=== PATIENT | female | born 1945 | race Caucasian/White ===

== ENCOUNTER → 2017-12-12 10:57 | Outpatient (CLI) | payer MEDICARE, MEDICAID, SELFPAY ==
[2017-12-12 12:15] LABS: C-Reactive Protein 1.26 mg/dL (0.0-0.3)
== END ==
PROVIDERS: Visit Provider Orthopaedic Surgery
DX: T84.84XD Pain due to internal orthopedic prosthetic devices, implants and grafts, subsequent encounter (principal)
CPT/HCPCS: 36415; 86140

== ENCOUNTER → 2017-12-17 11:00 | Outpatient (CLI) | payer MEDICARE, MEDICAID, SELFPAY | PROVIDERS: Visit Provider Orthopaedic Surgery | DX: T84.52XD Infection and inflammatory reaction due to internal left hip prosthesis, subsequent encounter (principal); Z96.642 Presence of left artificial hip joint | CPT/HCPCS: 99213 ==

== ENCOUNTER 2018-02-09 09:52 | Outpatient (CLI) | payer MEDICARE, MEDICAID, SELFPAY ==
[2018-02-09 11:47] LABS: C-Reactive Protein 2.12 mg/dL (0.0-0.3)
== END 2018-02-09 10:12 ==
PROVIDERS: Visit Provider Orthopaedic Surgery
DX: T84.52XD Infection and inflammatory reaction due to internal left hip prosthesis, subsequent encounter (principal)
CPT/HCPCS: 36415; 86140

== ENCOUNTER → 2018-02-12 13:05 | Outpatient (BNVA) | payer MEDICARE, MEDICAID, SELFPAY | PROVIDERS: Visit Provider Orthopaedic Surgery | DX: Z47.1 Aftercare following joint replacement surgery (principal); Z96.642 Presence of left artificial hip joint | CPT/HCPCS: 99213 ==

== ENCOUNTER 2018-02-20 00:39 | Outpatient (CLI) | payer MEDICARE, MEDICAID, SELFPAY ==
--- NOTE | 2018-02-20 13:14 | DI.MAMMO_ITS ---
SYMPTOMS/DIAGNOSIS: SCREENING BILATERAL SCREENING MAMMOGRAM: Comparison is made with 2011 through 2017. The breasts are composed of fatty density tissue, breast density category A. No suspicious masses or suspicious microcalcifications are seen. There has been no significant change. IMPRESSION: Category 1A, negative mammogram. Routine screening is recommended. [facility] ASSESSMENT OF FINDINGS: Negative. Category 1. Patient will receive a letter notifying them of these results. BI-RAD category A. The breasts are almost entirely fatty.
== END 2018-02-20 00:59 ==
DX: Z12.31 Encounter for screening mammogram for malignant neoplasm of breast (principal)
CPT/HCPCS: 77063; 77067

== ENCOUNTER 2018-03-30 13:59 | Outpatient (CLI) | payer MEDICARE, MEDICAID, SELFPAY ==
[2018-03-30 14:31] LABS: Abs Immature Grans 0.02 k/cumm (0.0-0.09); Absolute Basophil Count 0.03 k/cumm (0.0-0.2); Absolute Eosinophil Count 0.22 k/cumm (0.0-0.7); Absolute Monocyte Count 0.88 k/cumm (0.11-0.7); Absolute Neutrophil Count 9.45 k/cumm (1.2-6.7); Basophils % 0.2; Eosinophils % 1.7; HGB 13.1 g/dL (12.0-15.5); Immature Grans % 0.2; Lymphocytes % 17.2; Mean Corpuscular Hemoglobin 30.2 pg (27.0-33.0); Mean Corpuscular Volume 94.5 fL (80-95); Mean Platelet Volume 9.7 fL (8.0-11.0); Monocytes % 6.9; Neutrophils % 73.8; Platelet Count 401 x1000/uL (130-400); RBC 4.34 m/cumm (4.00-5.20); RBC Distribution Width 15.1 % (11.7-14.6)
[2018-03-30 15:51] LABS: Hemoglobin A1C 6.5 % (4.5-6.2)
[2018-03-30 15:53] LABS: ALT 18 U/L (12-78); AST 13 U/L (15-37); Albumin 3.3 g/dL (3.4-5.0); Alkaline Phosphatase 107 U/L (46-116); Anion Gap 7.5 mmol/L (3-11); BUN 18 mg/dL (7-18); Bilirubin, Total 0.3 mg/dL (0.2-1.0); C-Reactive Protein 3.37 mg/dL (0.0-0.3); CO2 30.5 mmol/L (21.0-32.0); CREATININE 1.12 mg/dL (0.55-1.02); Calcium 9.4 mg/dL (8.5-10.1); Chloride 99 mmol/L (98-107); Estimated GFR 47.96 (mL/min/1.73m2); Glucose 116 mg/dL (70-100); Potassium 3.9 mmol/L (3.5-5.1); Sodium 137 mmol/L (136-145); TSH (W/Ref FT4) 16.12 uIU/mL (0.358-3.74); Total Protein 7.2 g/dL (6.4-8.2)
[2018-03-30 16:33] LABS: FREE T4 0.92 ng/dL (0.76-1.46)
== END 2018-03-30 14:19 ==
PROVIDERS: Visit Provider Orthopaedic Surgery
DX: F32.9 Major depressive disorder, single episode, unspecified (principal); E11.9 Type 2 diabetes mellitus without complications; I10 Essential (primary) hypertension; K21.9 Gastro-esophageal reflux disease without esophagitis; E03.9 Hypothyroidism, unspecified; E66.9 Obesity, unspecified; Z96.642 Presence of left artificial hip joint; T84.59XA Infection and inflammatory reaction due to other internal joint prosthesis, initial encounter
CPT/HCPCS: 36415; 80053; 83036; 84439; 84443; 85025; 86140

== ENCOUNTER → 2018-03-31 10:58 | Outpatient (BNVA) | payer MEDICARE, MEDICAID, SELFPAY | PROVIDERS: Visit Provider Orthopaedic Surgery | DX: Z47.1 Aftercare following joint replacement surgery (principal); Z96.642 Presence of left artificial hip joint; T84.54XD Infection and inflammatory reaction due to internal left knee prosthesis, subsequent encounter | CPT/HCPCS: 99213 ==

== ENCOUNTER → 2018-07-01 10:34 | Outpatient (BNVA) | payer MEDICARE, MEDICAID, SELFPAY | PROVIDERS: Visit Provider Orthopaedic Surgery | DX: Z47.1 Aftercare following joint replacement surgery (principal); Z96.642 Presence of left artificial hip joint; T84.54XD Infection and inflammatory reaction due to internal left knee prosthesis, subsequent encounter | CPT/HCPCS: 99213 ==

== ENCOUNTER 2018-08-07 08:44 | Outpatient (CLI) | payer MEDICARE, MEDICAID, SELFPAY ==
[2018-08-07 09:47] LABS: HCT 41.7 % (36.0-46.0); HGB 13.5 g/dL (12.0-15.5); Mean Corp. HGB Concentration 32.4 g/dL (32.0-36.0); Mean Corpuscular Hemoglobin 30.2 pg (27.0-33.0); Mean Corpuscular Volume 93.3 fL (80-95); Mean Platelet Volume 9.9 fL (8.0-11.0); Platelet Count 372 x1000/uL (130-400); RBC 4.47 m/cumm (4.00-5.20); RBC Distribution Width 14.7 % (11.7-14.6); White Blood Cell Count 9.17 k/cumm (4.4-10.8)
[2018-08-07 10:06] LABS: Iron 53 ug/dL (50-175); Total Iron Binding Capacity 312 ug/dL (250-450); Transferrin Sat 17 % (15-50)
[2018-08-07 10:08] LABS: ALT 19 U/L (12-78); AST 16 U/L (15-37); Albumin 3.2 g/dL (3.4-5.0); Alkaline Phosphatase 133 U/L (46-116); BUN 18 mg/dL (7-18); Bilirubin, Total 0.3 mg/dL (0.2-1.0); CREATININE 0.92 mg/dL (0.55-1.02); Calcium 9.4 mg/dL (8.5-10.1); Chloride 100 mmol/L (98-107); Glucose 153 mg/dL (70-100); Potassium 4.1 mmol/L (3.5-5.1); Sodium 139 mmol/L (136-145); Total Protein 7.3 g/dL (6.4-8.2)
[2018-08-07 10:15] LABS: Hemoglobin A1C 6.8 % (4.5-6.2)
== END 2018-08-07 09:04 ==
DX: E03.9 Hypothyroidism, unspecified (principal); I10 Essential (primary) hypertension; E11.620 Type 2 diabetes mellitus with diabetic dermatitis; E66.01 Morbid (severe) obesity due to excess calories; K21.9 Gastro-esophageal reflux disease without esophagitis; Z68.43 Body mass index [BMI] 50.0-59.9, adult; Z86.2 Personal history of diseases of the blood and blood-forming organs and certain disorders involving the immune mechanism
CPT/HCPCS: 36415; 80053; 85027; 83036; 83540; 83550

== ENCOUNTER 2021-08-15 00:32 | Outpatient (CLI) | payer MEDICARE, MEDICAID, SELFPAY ==
--- NOTE | 2021-08-15 11:16 | DI.MAMMO_ITS ---
Exam(s) MAMMO SCREENING EXAM: MAMMO SCREENING CLINICAL HISTORY: screening,z12.39. TECHNIQUE: Bilateral full field digital CC and MLO mammographic images were obtained with 3D tomosyn thesis and utilizing computer aided detection (CAD). COMPARISON: Prior mammograms were reviewed, the most recent being February 2018. FINDINGS: There are no new spiculated masses nor malignant appearing microcalcification groups. There is no significant architectural distortion nor skin thickening-retraction. IMPRESSION: No radiographic evidence of malignancy. BI-RADS Category 1 - Negative Breast Density - Category A - Almost entirely fatty Breast density Category C or D implies that the patient has dense breast tissue. Dense breast tissue can make it harder to find cancer on a mammogram. Dense breast tissue is also associated with an incr eased risk of breast cancer. This information about the result of the mammogram report was provided to the patient to raise their awareness. Use this report when you speak with the patient about their risks for breast cancer, which includes their family history. At that time, you may recommend additional screening tests (Ultrasoun d or MRI) as these tests may add significant information. A negative radiographic report should not delay biopsy if a dominant or clinically suspicious mass is present. Up to ten percent of cancers are not identified on mammography. A negative report may reinforce clinical impression. Adenosis and dense breasts may obscure an underlying neoplasm. False positive reports average 6 to 10%. Patient will receive a letter notifying them of these results.
== END 2021-08-15 00:52 ==
DX: Z12.31 Encounter for screening mammogram for malignant neoplasm of breast (principal)
CPT/HCPCS: 77063; 77067

== ENCOUNTER 2022-02-06 03:13 | Outpatient (CLI) | payer MEDICARE, MEDICAID, SELFPAY ==
[2022-02-06 12:45] LABS: ALT 19 U/L (14-59); AST 12 U/L (15-37); Albumin 2.9 g/dL (3.4-5.0); Alkaline Phosphatase 116 U/L (46-116); Anion Gap 7.7 mmol/L (3-11); BUN 18 mg/dL (7-18); Bilirubin, Total 0.3 mg/dL (0.2-1.0); CO2 29.3 mmol/L (21.0-32.0); Calculated LDL 181 mg/dL (<100); Chloride 103 mmol/L (98-107); Cholesterol 250 mg/dL (<200); Estimated GFR 58.75 (mL/min/1.73m2); Glucose 148 mg/dL (74-106); HDL Cholesterol 49 mg/dL (40-60); Potassium 3.5 mmol/L (3.5-5.1); Sodium 140 mmol/L (136-145); TSH (W/Ref FT4) 5.64 uIU/mL (0.36-3.74); Total Protein 7.9 g/dL (6.4-8.2); Triglyceride 103 mg/dL (<150)
[2022-02-06 13:05] LABS: FREE T4 0.71 ng/dL (0.76-1.46)
== END 2022-02-06 03:14 | disposition home or self-care (01) ==
LOC: LOS 03:13
DX: E11.620 Type 2 diabetes mellitus with diabetic dermatitis (principal); Z90.09 Acquired absence of other part of head and neck; E78.5 Hyperlipidemia, unspecified; I10 Essential (primary) hypertension
CPT/HCPCS: 36415; 80053; 80061; 83036; 84439; 84443

== ENCOUNTER 2022-03-20 11:47 | Outpatient (REF) | payer MEDICARE, MEDICAID, SELFPAY ==
[2022-03-20 20:56] LABS: TSH (W/Ref FT4) 0.75 uIU/mL (0.36-3.74)
== END 2022-03-20 11:48 | disposition home or self-care (01) ==
LOC: NCHCN 11:47
PROVIDERS: PCP Nurse Practitioner Family; Visit Provider Nurse Practitioner Family
DX: Z09 Encounter for follow-up examination after completed treatment for conditions other than malignant neoplasm (principal)
CPT/HCPCS: 84443

== ENCOUNTER 2023-02-28 18:41 | Outpatient (REF) | payer MEDICARE, MEDICAID, SELFPAY ==
[2023-02-28 22:56] LABS: Hemoglobin A1C 7.3 % (<5.7)
[2023-02-28 23:09] LABS: ALT 14 U/L (14-59); AST 13 U/L (15-37); Albumin 3.1 g/dL (3.4-5.0); Alkaline Phosphatase 141 U/L (46-116); Anion Gap 14.1 mmol/L (3-11); BUN 20 mg/dL (7-18); Bilirubin, Total 0.2 mg/dL (0.2-1.0); CO2 25.9 mmol/L (21.0-32.0); Calculated LDL 102 mg/dL (<100); Chloride 100 mmol/L (98-107); Cholesterol 165 mg/dL (<200); Estimated GFR 58.39 (mL/min/1.73m2); Glucose 149 mg/dL (74-106); HDL Cholesterol 43 mg/dL (40-60); Potassium 4.6 mmol/L (3.5-5.1); Sodium 140 mmol/L (136-145); TSH (W/Ref FT4) 0.04 uIU/mL (0.36-3.74); Total Protein 7.6 g/dL (6.4-8.2); Triglyceride 102 mg/dL (<150)
== END 2023-02-28 18:42 | disposition home or self-care (01) ==
LOC: LBN 18:41
PROVIDERS: PCP Nurse Practitioner Family; Visit Provider Nurse Practitioner Family
DX: E11.620 Type 2 diabetes mellitus with diabetic dermatitis (principal); E03.9 Hypothyroidism, unspecified
CPT/HCPCS: 80053; 80061; 83036; 84439; 84443

== ENCOUNTER 2023-09-02 14:13 | Outpatient (REF) | payer MEDICARE, MEDICAID, SELFPAY ==
[2023-09-02 20:52] LABS: TSH (W/Ref FT4) 0.05 uIU/mL (0.36-3.74)
== END 2023-09-02 14:14 | disposition home or self-care (01) ==
LOC: LBN 14:13
PROVIDERS: PCP Nurse Practitioner Family; Visit Provider Nurse Practitioner Family
DX: E03.9 Hypothyroidism, unspecified (principal)
CPT/HCPCS: 84439; 84443

== ENCOUNTER 2024-03-02 15:28 | Outpatient (REF) | payer MEDICARE, MEDICAID, SELFPAY ==
[2024-03-02 13:33] LABS: ALT 14 U/L (14-59); AST 16 U/L (15-37); Albumin 3.2 g/dL (3.4-5.0); Alkaline Phosphatase 137 U/L (46-116); Anion Gap 14.2 mmol/L (3-11); BUN 13 mg/dL (7-18); Bilirubin, Total 0.51 mg/dL (0.2-1.0); CO2 25.8 mmol/L (21.0-32.0); CREATININE 1.1 mg/dL (0.55-1.02); Calculated LDL 105 mg/dL (<100); Chloride 98 mmol/L (98-107); Cholesterol 168 mg/dL (<200); Estimated GFR 51.75 (mL/min/1.73m2); Glucose 168 mg/dL (74-106); HDL Cholesterol 42 mg/dL (40-60); Potassium 4.3 mmol/L (3.5-5.1); Sodium 138 mmol/L (136-145); TSH (W/Ref FT4) 0.02 uIU/mL (0.36-3.74); Total Protein 7.9 g/dL (6.4-8.2); Triglyceride 106 mg/dL (<150)
[2024-03-02 23:53] LABS: Hepatitis C Ab w Rflx HCV PCR Negative (Negative)
== END 2024-03-02 15:29 ==
LOC: LBN 15:28
PROVIDERS: PCP Nurse Practitioner Family; Visit Provider Nurse Practitioner Family
DX: E78.00 Pure hypercholesterolemia, unspecified (principal); E03.9 Hypothyroidism, unspecified; Z11.59 Encounter for screening for other viral diseases
CPT/HCPCS: 80053; 80061; 86803; 84439; 84443

== ENCOUNTER 2024-03-18 02:12 | Outpatient (CLI) | payer MEDICARE, MEDICAID, SELFPAY ==
--- NOTE | 2024-03-18 07:15 | DI.DEXA_ITS ---
Exam(s) XR DEXA BONE DENSITY W/WO RUBENS EXAM: XR DEXA BONE DENSITY W/WO RUBENS CLINICAL HISTORY: screening for osteoporosis IN POSTMENOPAUSAL STATUS,Z78.0 TECHNIQUE: COMPARISON: Comparison examination is 02/24/2008. FINDINGS: Lateral Spine Image: Unremarkable. No compression deformities identified. Left forearm: Total T-Score: 0.0 Total Z-Score: 2.7 T- and Z-scores: Within normal limits. Lumbar Spine: Total T-Score: 2.0. This compares to 3.4 on the prior examination. Total Z-Score: 4.6 T- and Z-scores: Within normal limits. IMPRESSION: No evidence of osteoporosis.
== END 2024-03-18 02:32 ==
LOC: DI 02:12
PROVIDERS: PCP Nurse Practitioner Family; Visit Provider Nurse Practitioner Family
DX: Z78.0 Asymptomatic menopausal state (principal); Z13.820 Encounter for screening for osteoporosis
CPT/HCPCS: 77080

== ENCOUNTER 2024-09-07 22:17 | Outpatient (REF) | payer MEDICARE, MEDICAID, SELFPAY ==
[2024-09-07 23:25] LABS: TSH (W/Ref FT4) 0.22 uIU/mL (0.36-3.74)
[2024-09-07 23:45] LABS: FREE T4 1.36 ng/dL (0.76-1.46)
== END 2024-09-07 22:18 | disposition home or self-care (01) ==
LOC: LBN 22:17
PROVIDERS: PCP Nurse Practitioner Family; Visit Provider Nurse Practitioner Family
DX: Z90.09 Acquired absence of other part of head and neck (principal); E03.9 Hypothyroidism, unspecified
CPT/HCPCS: 84439; 84443

== ENCOUNTER 2024-10-11 08:35 | Inpatient (IN) | payer MEDICARE, MEDICAID, SELFPAY ==
[2024-10-11] VITALS (40 sets, daily range): BP systolic 101–113; BP diastolic 40–69; PULSE 68–89; RESP 15–28; TEMP 36.4–37; O2SAT 77–97
--- NOTE | 2024-10-11 08:15 | RT.EKG_ITS ---
APPROVED REPORT Exam: Resting ECG Reason for Exam: SOB Patient Location: E HR:88 bpm ECG Measurements Heart Rate 88 AXIS MD [id number] P [id number] QRSd 124 QRS -72 QT 404 T 126 QTc 488 Conclusion Atrial fibrillation, rate 88 IVCD T wave inversion I, aVL No STEMI No recent priors, A-fib new from [facility] EKG 2016
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
[2024-10-11] MEDS: methylPREDNISolone SUCC 125 MG VIAL IVP (08:55)
[2024-10-11 08:56] LABS: Abs Immature Grans 0.09 10^3/uL (0.0-0.06); Absolute Lymphocyte Count 1.37 10^3/uL (1.2-3.4); Absolute Monocyte Count 0.67 10^3/uL (0.1-0.8); Absolute Neutrophil Count 13.37 10^3/uL (1.2-6.7); BE (Venous) 5 mmol/L (-2-3); Basophils % 0.4 %; Eosinophils % 0.8 %; HCO3 (Venous) 30 mmol/L (23-28); HCT 35.4 % (36.0-46.0); HGB 11.6 g/dL (11.2-15.7); Immature Grans % 0.6 %; Lymphocytes % 8.7 %; MCHC 32.8 % (32.0-36.0); MCV 92 fL (80-95); MPV 9.1 fL (8.0-11.0); Monocytes % 4.3 %; Neutrophils % 85.2 %; O2 Sat (Venous) 72 %; Platelet Count 474 10^3/uL (130-400); RBC 3.87 10^6/uL (3.93-5.22); RDW 14.7 % (11.7-14.6); RDW-SD 49.5 fL; TCO2 (Venous) 28 mmol/L (24-29); WBC 15.69 10^3/uL (4.4-10.8); pCO2 (Venous) 49 mmHg (41-51); pH (Venous) 7.39 (7.31-7.41); pO2 (Venous) 40 mmHg
[2024-10-11] MEDS: Albuterol/Ipratropium 3 ML UPD VIAL UPD (08:56)
[2024-10-11 08:57] LABS: Absolute Basophil Count 0.06 10^3/uL (0.0-0.2); Absolute Eosinophil Count 0.13 10^3/uL (0.0-0.7)
[2024-10-11 09:25] LABS: D-Dimer 1982 ng/mlFEU (<500)
--- NOTE | 2024-10-11 09:25 | DI.RAD_ITS ---
Exam(s) XR PORTABLE CHEST AP EXAM: XR PORTABLE CHEST AP CLINICAL HISTORY: Shortness of breath/hypoxia TECHNIQUE: 2D digital imaging was performed of the chest. Two images were obtained. AP views were obtained. COMPARISON: CR CHEST 2 VIEWS PA,LAT from 09/02/2017 FINDINGS: There is poor inspiration with crowding of the pulmonary vasculature. MEDIASTINUM: Normal. HEART: The heart is at the upper limits of normal in size. PULMONARY VASCULATURE: There is pulmonary venous congestion. LUNGS: No focal consolidating infiltrates are seen. There are increased interstitial markings in the lungs particularly in the perihilar region, right greater than left. PLEURAL SPACE: No pleural effusion or pneumothorax. BONE:Within normal limits for the patient's age. OTHER FINDINGS:Normal. IMPRESSION: Mild cardiomegaly. Pulmonary venous congestion and interstitial edema. DATA REPOSITORY: RADIATION DOSE DELIVERED:
[2024-10-11 09:29] LABS: ALT 11 U/L (14-59); AST 18 U/L (15-37); Albumin 2.8 g/dL (3.4-5.0); Alkaline Phosphatase 125 U/L (46-116); BUN 17 mg/dL (7-18); Bilirubin, Total 0.8 mg/dL (0.2-1.0); CREATININE 0.8 mg/dL (0.55-1.02); Calcium 9.1 mg/dL (8.5-10.1); Chloride 94 mmol/L (98-107); Estimated GFR 75.37 (mL/min/1.73m2); Glucose 188 mg/dL (74-106); Magnesium 1.5 mg/dL (1.8-2.4); NT-proBNP 3546 pg/mL (<300); Potassium 3.9 mmol/L (3.5-5.1); Sodium 134 mmol/L (136-145); Troponin I 16 ng/L (<or=51)
--- NOTE | 2024-10-11 09:43 | DI.CT_ITS ---
Exam(s) CT CHEST PE CTA EXAM: CT CHEST PE CTA CLINICAL HISTORY: new heart failure, elevated d-dimer. TECHNIQUE: Imaging Protocol: Axial CT angiography was performed with multi-slice acquisition and mu lti-planar and/or 3D reconstructions. Lung Computer Aided Detection (CAD) was utilized. CONTRAST MATERIAL: Intravenous: Omnipaque 350 contrast volume:100 mL COMPARISON: CR XR PORTABLE CHEST AP from 10/11/2024 FINDINGS: Tracheobronchial tree: Patent where visualized. No bronchiectasis. Pulmonary parenchyma: There are diffuse bilateral ground-glass opacities present. There are bilatera l pleural effusions, right greater than left with subjacent infiltrates which may represent atelectas is. No architectural distortion. Pulmonary Arteries: Due to the low lung volumes and motion artifact, subsegmental pulmonary artery ev aluation is limited. Within the limits of the examination, no pulmonary embolism is present. Mediastinum and Lindsay: No dominant adenopathy or fluid collection. The esophagus is unremarkable. Pleura: No pneumothorax. Heart: Cardiomegaly. Mild coronary artery calcification is present. No pericardial effusion. Aorta: Thoracic aorta non-dilated. Atherosclerotic calcification is present. There is poor opacifica tion of the aorta due to timing of the bolus. Upper abdomen: Cholelithiasis. Right renal cyst. No follow-up is recommended. Soft tissues: Unremarkable. Bones: Within normal limits for the patient's age. IMPRESSION: 1. Within the limits of the examination, there is no evidence of pulmonary embolism or aneurysm. 2. Findings suggestive of congestive heart failure with cardiomegaly and pleural effusions. 3. Pulmonary opacities likely reflecting pulmonary edema. Pneumonia cannot be excluded. Please demar elate clinically. 4. Cholelithiasis. RADIATION DOSE DELIVERED: 338.86mGy.cm Total DLP DATA REPOSITORY: All CT scans at this facility are submitted to the National Radiology Data Registry (NRDR) Dose Index Registry (DIR) with the [employer] (ACR). RADIATION OPTIMIZATION: All CT scans at this facility use at least one of these dose optimization te chniques: automated exposure control; mA and/or kV adjustment per patient size (includes targeted exa ms where dose is matched to clinical indication); or iterative reconstruction.
[2024-10-11] MEDS: Furosemide 40 MG/4 ML VIAL IVP (09:46)
[2024-10-11] MEDS: MAGNESIUM SULFATE 2 GM/50 ML BAG IV_INF (09:59)
[2024-10-11 10:10] LABS: Bilirubin Moderate (Negative); Blood Trace-intact (Negative); Clarity Sl Cloudy (Clear); Glucose Negative (Negative); Ketones 15 mg/dL (Negative); Leukocyte Esterase Trace (Negative); Nitrite Negative (Negative)
[2024-10-11] MEDS: Normal Saline - Diluent 50 ML VIAL IJ (10:19)
[2024-10-11 10:20] LABS: Troponin I 17 ng/L (<or=51)
[2024-10-11] MEDS: Omnipaque 350 MG/ML 100 ML BTL IJ (10:20)
[2024-10-11 10:25] LABS: Epithelial Cells Rare HPF (Negative); WBC 0-2 HPF (0-5)
[2024-10-11 10:26] LABS: Bacteria Few HPF (Negative); C & S Indicated? No; Casts 5-10 Hyaline LPF (Negative); Crystals Negative HPF (Negative); Mucus Trace (Negative); Other Cells Rare Renal (Negative)
--- NOTE | 2024-10-11 14:43 | W.PC.ACHO ---
Registration Status: Primary Language: Preferred Language: ED Information & Data Chief Complaint RespSymp 10/11/24 11:26 Chief Complaint RespSymp 10/11/24 08:53 Triage Note Patient complaining of SOB. 10/11/24 08:36 EMS found patient with ow O2 level. EMS gave 2 neb treatments. Medical / Surgical History (Last Reviewed 09/02/23 @ 12:16 by Mikel Polanco NP) Wound healing, delayed (04/14/17) HTN (hypertension) Depressive disorder History of total right hip replacement (Last Reviewed 09/02/23 @ 12:16 by Mikel Polanco NP) History of bilateral ligation of fallopian tubes Ligation of fallopian tube Total replacement of hip (12/18/15) Lobectomy Hysterectomy Colonoscopy - MAC (12/18/16) Cervical Conization/LEEP Most Recent Vital Signs Temperature 37.0 C 10/11/24 08:44 Temperature Source Oral 10/11/24 08:44 Pulse 74 10/11/24 12:01 Pulse 73 10/11/24 12:01 Respiratory Rate 19 10/11/24 12:01 Respiratory Effort Labored 10/11/24 10:17 Respiratory Depth Normal 10/11/24 10:17 Blood Pressure 109/64 10/11/24 12:01 Blood Pressure Mean 73 10/11/24 12:01 Pulse Oximetry 93 10/11/24 12:01 Oxygen Delivery Method OxyMask 10/11/24 08:56 Oxygen Flow Rate 6 10/11/24 08:44 Allergies zolpidem tartrate (From Ambien) Adverse Reaction (Severe, Verified 10/11/24 08:44) Psychosis Precautions Isolation Standard precaution 10/11/24 11:26 Active Medications Generic Name Dose Route Start Last Admin Trade Name Freq PRN Reason Stop Dose Admin Iohexol 100 ml 10/11/24 10:30 10/11/24 10:20 Omnipaque 350 Mg/Ml 100 Ml Btl IJ 11/10/24 23:59 100 ml DIRECTED PJ Administration Sodium Chloride 50 ml 10/11/24 10:30 10/11/24 10:19 Normal Saline - Diluent 50 Ml Vial IJ 50 ml .FOR DI USE PJ Administration IV IV Catheter Type [Right Saline Lock Antecubital] IV Catheter Gauge [Right 20 Antecubital] Diet Orders Category Date Time Status Heart Healthy Eating [DIET] Nutrition 10/11/24 Dinner Active Diagnostics 10/11/24 10/11/24 10/11/24 Range/Units 11:41 10:02 09:32 WBC (4.4-10.8) 10^3/uL RBC (3.93-5.22) 10^6/uL Hgb (11.2-15.7) g/dL Hct (36.0-46.0) % MCV (80-95) fL MCH (27.0-33.0) pg MCHC (32.0-36.0) % RDW (11.7-14.6) % Plt Count (130-400) 10^3/uL MPV (8.0-11.0) fL Immature Gran % % Neutrophils % % Lymphocytes % % Monocytes % % Eosinophils % % Basophils % % Nucleated RBC % (0.0-0.3) % Absolute Neutrophils (1.2-6.7) 10^3/uL Absolute Lymphocytes (1.2-3.4) 10^3/uL Absolute Monocytes (0.1-0.8) 10^3/uL Absolute Eosinophils (0.0-0.7) 10^3/uL Absolute Basophils (0.0-0.2) 10^3/uL D-Dimer (<500) ng/mlFEU VBG pH (7.31-7.41) VBG pCO2 (41-51) mmHg VBG pO2 mmHg VBG HCO3 (23-28) mmol/L VBG Total CO2 (24-29) mmol/L VBG O2 Saturation % VBG Base Excess (-2-3) mmol/L Sodium (136-145) mmol/L Potassium (3.5-5.1) mmol/L Chloride (98-107) mmol/L Carbon Dioxide (21.0-32.0) mmol/L Anion Gap (3-11) mmol/L BUN (7-18) mg/dL Creatinine (0.55-1.02) mg/dL Est GFR (CKD-EPI 2020) (mL/min/1.73m2) Glucose (74-106) mg/dL Calcium (8.5-10.1) mg/dL Magnesium (1.8-2.4) mg/dL Total Bilirubin (0.2-1.0) mg/dL AST (15-37) U/L ALT (14-59) U/L Alkaline Phosphatase (46-116) U/L Troponin I Cancelled 17 (<or=51) ng/L NT-Pro-B Natriuret Pep (<300) pg/mL Total Protein (6.4-8.2) g/dL Albumin (3.4-5.0) g/dL Urine Color Yellow (Yellow) Urine Clarity Sl Cloudy (Clear) Urine pH 6.0 (5-8) Ur Specific [place] 1.020 (1.005-1.025) Urine Protein 100 H (Neg-Trace) mg/dL Urine Ketones 15 H (Negative) mg/dL Urine Blood Trace-intact H (Negative) Urine Nitrite Negative (Negative) Urine Bilirubin Moderate H (Negative) Urine Urobilinogen 4.0 H (Up to 0.2) mg/dL Ur Leukocyte Esterase Trace H (Negative) Urine RBC 3-5 H (0-2) HPF Urine WBC 0-2 (0-5) HPF Ur Epithelial Cells Rare (Negative) HPF Urine Crystals Negative (Negative) HPF Urine Bacteria Few (Negative) HPF Urine Casts 5-10 Hyaline (Negative) LPF Urine Mucus Trace (Negative) Urine Other Rare Renal (Negative) Ur Culture Indicated? No Urine Glucose Negative (Negative) mg/dL 10/11/24 Range/Units 08:46 WBC 15.69 H (4.4-10.8) 10^3/uL RBC 3.87 L (3.93-5.22) 10^6/uL Hgb 11.6 (11.2-15.7) g/dL Hct 35.4 L (36.0-46.0) % MCV 92 (80-95) fL MCH 30.0 (27.0-33.0) pg MCHC 32.8 (32.0-36.0) % RDW 14.7 H (11.7-14.6) % Plt Count 474 H (130-400) 10^3/uL MPV 9.1 (8.0-11.0) fL Immature Gran % 0.6 % Neutrophils % 85.2 % Lymphocytes % 8.7 % Monocytes % 4.3 % Eosinophils % 0.8 % Basophils % 0.4 % Nucleated RBC % 0.0 (0.0-0.3) % Absolute Neutrophils 13.37 H (1.2-6.7) 10^3/uL Absolute Lymphocytes 1.37 (1.2-3.4) 10^3/uL Absolute Monocytes 0.67 (0.1-0.8) 10^3/uL Absolute Eosinophils 0.13 (0.0-0.7) 10^3/uL Absolute Basophils 0.06 (0.0-0.2) 10^3/uL D-Dimer 1982 H (<500) ng/mlFEU VBG pH 7.39 (7.31-7.41) VBG pCO2 49 (41-51) mmHg VBG pO2 40 mmHg VBG HCO3 30 H (23-28) mmol/L VBG Total CO2 28 (24-29) mmol/L VBG O2 Saturation 72 % VBG Base Excess 5 H (-2-3) mmol/L Sodium 134 L (136-145) mmol/L Potassium 3.9 (3.5-5.1) mmol/L Chloride 94 L (98-107) mmol/L Carbon Dioxide 30.0 (21.0-32.0) mmol/L Anion Gap 10.0 (3-11) mmol/L BUN 17 (7-18) mg/dL Creatinine 0.8 (0.55-1.02) mg/dL Est GFR (CKD-EPI 2020) 75.37 (mL/min/1.73m2) Glucose 188 H (74-106) mg/dL Calcium 9.1 (8.5-10.1) mg/dL Magnesium 1.5 L (1.8-2.4) mg/dL Total Bilirubin 0.8 (0.2-1.0) mg/dL AST 18 (15-37) U/L ALT 11 L (14-59) U/L Alkaline Phosphatase 125 H (46-116) U/L Troponin I 16 (<or=51) ng/L NT-Pro-B Natriuret Pep 3546 H (<300) pg/mL Total Protein 8.0 (6.4-8.2) g/dL Albumin 2.8 L (3.4-5.0) g/dL Urine Color (Yellow) Urine Clarity (Clear) Urine pH (5-8) Ur Specific [place] (1.005-1.025) Urine Protein (Neg-Trace) mg/dL Urine Ketones (Negative) mg/dL Urine Blood (Negative) Urine Nitrite (Negative) Urine Bilirubin (Negative) Urine Urobilinogen (Up to 0.2) mg/dL Ur Leukocyte Esterase (Negative) Urine RBC (0-2) HPF Urine WBC (0-5) HPF Ur Epithelial Cells (Negative) HPF Urine Crystals (Negative) HPF Urine Bacteria (Negative) HPF Urine Casts (Negative) LPF Urine Mucus (Negative) Urine Other (Negative) Ur Culture Indicated? Urine Glucose (Negative) mg/dL Intake and Output - 24 Hour Total 10/11/24 08:22 thru 10/11/24 12:50 Intake Total 50 Output Total 600 Balance -550 Weight 129.274 kg Intake: IV 50 Output: Urine 600 Other: Urine Color Yellow Urine Appearance Clear Comment Inserted with Meg Arzate RN Urinary Catheter Urinary Catheter Date of 10/11/24 Insertion [Urethral (Cha)] Time of insertion [Urethral ( 10:00 Cha)] Falls Risk Assessment History of Falls No History 10/11/24 11:31 Contributing Factors No Factors 10/11/24 11:31 Ambulatory Aids Uses ambulatory device 10/11/24 11:31 Tubes/Lines None 10/11/24 11:31 Gait Evaluation W/no contributing factors 10/11/24 11:31 Cognition No cognitive impairment 10/11/24 11:31 Fall Total Score 10/11/24 11:31 Level of Risk Moderate Risk 10/11/24 11:31 v v v v v v v v v Sending and/or Receiving Nurses: Please use comment section below to note any information pertinent to the patient hand-off not included above. Information / Comments: Pt came to ED for worsening work of breath. Pt was sating at 60% when arrived to ed. Medications were provided and pts WOB decreased. Pt VS stable in ED. On 3 L sating at 94%. Pt arrived on floor and was settled into bed. Pt has a # 20 to R ac flushing well. Allergy reported to zolpidem. a/o x 4 and able to make needs known. Bed alarm set for safety. Report received from:
[2024-10-11] MEDS: Enoxaparin 40 MG/0.4 ML SYR SC (15:39)
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
[2024-10-11 17:44] LABS: Lab Add On Test DONE
[2024-10-11 18:10] LABS: TSH 0.57 uIU/mL (0.36-3.74)
[2024-10-11 18:36] LABS: Hemoglobin A1C 6.2 % (<5.7)
[2024-10-11] MEDS: Furosemide 40 MG/4 ML VIAL 60 MG IVP (20:06)
[2024-10-11] MEDS: Melatonin 3 MG TAB 6 MG PO (20:08)
[2024-10-11] MEDS: Simvastatin 20 MG TAB PO (20:08)
[2024-10-11] MEDS: Apixaban 5 MG TAB PO (20:08)
[2024-10-11] MEDS: Normal Saline Flush 10 ML SYR IVP (20:09)
[2024-10-11] MEDS: Insulin Aspart 300 UNITS/3 ML PEN SC (22:21)
[2024-10-12] VITALS (20 sets, daily range): BP systolic 82–115; BP diastolic 41–99; PULSE 65–83; RESP 16–20; TEMP 36.1–36.8; O2SAT 77–97
--- NOTE | 2024-10-12 | DI.US_ITS ---
APPROVED REPORT EXAM: Comprehensive 2D, Doppler, and color-flow Echocardiogram Patient Location: In-Patient Room/Bed: 211 Deckhand: Leah Marie RDCS (AE) Indications: CHF new DX, A Fib Other Information Study Quality: Fair. Technically limited study due to body habitus, exam done supine. Conclusion Mild concentric left ventricular hypertrophy. Ejection fraction is 55%. Wall motion is normal Normal right ventricular size and function Both atria are moderately enlarged There are no structural valvular abnormalities Trace aortic regurgitation Moderate mitral regurgitation Mild tricuspid regurgitation. Estimated right ventricular systolic pressure is 55 mmHg Ascending aorta measures 3.87 cm Wall motion Left Ventricle The left ventricle is normal size. The left ventricular systolic function is normal. The left ventric ular ejection fraction is within the normal range. Mild concentric left ventricular hypertrophy. Ther e is normal LV segmental wall motion. There is no ventricular septal defect visualized. LVEF is 55%. Right Ventricle Right ventricle is grossly normal in size. Right ventricular systolic function is grossly normal. Atria Left atrium is moderately dilated. Right atrium is moderately dilated. The interatrial septum is inta ct with no evidence for an atrial septal defect. Aortic Valve The aortic valve is normal in structure. Aortic valve is trileaflet. There is no aortic valvular sten osis. Trace aortic regurgitation. Mitral Valve The mitral valve is normal in structure. No evidence of mitral valve stenosis. Moderate mitral regur gitation. Tricuspid Valve The tricuspid valve is normal in structure. There is no tricuspid valve stenosis. Mild tricuspid reg urgitation. The RVSP is 55.4_ mmHg. Pulmonic Valve The pulmonary valve is normal in structure. There is no pulmonic valvular stenosis. Trace pulmonic re gurgitation. Great Vessels The aortic root is normal in size. The ascending aorta is mildly dilated. Aortic arch is normal in ca liber. IVC is normal in size and collapses >50% with inspiration. Pericardium There is no pericardial effusion. 2D Dimensions IVSD d PLAX 1.20 cm F: 0.6-1.0 Ao Root d 3.30 cm F: 2.7 - 3.3 LVPW d PLAX 1.21 cm F: 0.6 - 1.0 Ao Asc Diam d 3.87 cm F: 2.3 - 3.1 LVID d PLAX 4.85 cm F: 3.8 - 5.2 LVDs 3.36 cm F: 2.2 - 3.5 LV EF Teichholz 58.0 % FS 30.65 % LV EDV (Teich) 110.1 mL LV ESV (Teich) 46.2 mL M-Mode TAPSE 1.69 cm (M/F) >1.7 Auto EF LV EDV A4C 119.2 mL LV EDV A2C 137.4 mL LV EDV BP 128.1 mL LV ESV A4C 54.9 mL LV ESV A2C 63.6 mL LV ESV BP 58.8 mL LVEF(%) A4C 53.9 % LVEF(%) A2C 53.7 % LVEF(%) BP 54.1 % LV SV A4C 64.3 ml LV SV A2C 73.8 ml LV SV BP 69.3 ml LV CO A4C 4.5 L/min LV CO A2C 4.0 L/min LV CO BP 4.2 L/min HR A4C 69.24 BPM HR A2C 53.56 BPM LV EDV Index (BP) LA Volume LA Length A4C 6.8 cm LA Length A2C 6.9 cm LA Area A4C s 28.52 cm2 LA Area A2C s 28.44 cm2 LA Vol A4C A-L 101.89 mL LA Vol A2C A-L 99.53 mL LA Vol Biplane A-L 101.6 mL LA Vol/BSA A4C A-L LA Vol/BSA A2C A-L LA Vol/BSA BP A-L 45.8 mL/m2 LA Vol A4C MOD 96.0 mL LA Vol A2C MOD 91.2 mL LA Vol BP MOD 94.1 mL RA Volume RA Area A4C 18.6 cm2 RA ESV A4C (A-L) 51.0mL RA Vol/BSA A4C A-L RA Length A4C 5.8 cm RA ESV A4C (MOD) 52.8mL LV Diastology MV E' medial 0.067 (>0.07 m/s) MV E Vmax 1.35 (0.4-1.3 m/s) MV E/E' MED 20.23 (<14) MV A Vmax 0.45 (0.4-1.3 m/s) MV E' lateral 0.123 (>0.1 m/s) E/A Ratio 3.0 MV E/E' LAT 10.99 (<14) MV E' Average 0.095 m/s MV E/E'(average) 14.24 Aortic Valve AoV Vmax 1.68 m/s LVOT Vmax 1.27 m/s AoV Peak Grad 11.4 mmHg LVOT Peak Grad 6.5 mmHg AoV Area (Vmax) 2.43 cm2 LVOT VTI 0.290 m AoV VTI 0.357 m LVOT Mean Grad 3.7 mmHg AoV Mean Marc. 1.14 m/s LVOT SV 93.25 mL AoV Mean Grad 5.9 mmHg LVOT Diam s 2.00 cm AoV Area (VTI) 2.61 cm2 AV Regurg Peak Gr. 11.35 mmHg Velocity Ratio 0.76 Mitral Valve MV DT 164 (160-240 msec) MV Vmax TIPS 1.31 m/s MV Mean Grad 2.0 (<2mmHg) MV VTI 0.328 m Pulmonary Valve PV Vmax 0.97 (0.5-1.5 m/s) RVOT Vmax 0.58 m/s PV Peak Grad 3.8 mmHg RVOT Peak Gr. 1.4 mmHg PV Mean Marc 0.71 m/s RVOT VTI 0.171 m PV Mean Grad 2.2 mmHg RVOT Mean Gr. 0.7 mmHg Tricuspid Valve RA Pressure 3.00 mmHg TR Vmax 3.62 m/s TV S' 0.12 m/s TR Peak Grad 52.3 mmHg RVSP (TR) 55.4 mmHg
--- NOTE | 2024-10-12 | DI.RAD_ITS ---
Exam(s) XR PORTABLE CHEST AP EXAM: XR PORTABLE CHEST AP CLINICAL HISTORY: Increased SOB. TECHNIQUE: 2D digital imaging was performed. COMPARISON: CR XR PORTABLE CHEST AP from 10/11/2024 FINDINGS: Single AP portable view. Cardiomegaly again noted. Mediastinum unchanged. Persistent increased markings in the lung caldwell probably pulmonary edema. No large pleural effusion s. No pneumothorax. No fractures. IMPRESSION: As above. No radiographic improvement when compared to yesterday. DATA REPOSITORY: RADIATION DOSE DELIVERED:
[2024-10-12] MEDS: Levothyroxine 175 MCG TAB PO (05:50)
[2024-10-12 06:37] LABS: Abs Immature Grans 0.08 10^3/uL (0.0-0.06); Absolute Lymphocyte Count 1.21 10^3/uL (1.2-3.4); Absolute Monocyte Count 0.77 10^3/uL (0.1-0.8); Absolute Neutrophil Count 10.21 10^3/uL (1.2-6.7); Basophils % 0.2 %; HCT 31.9 % (36.0-46.0); HGB 10.6 g/dL (11.2-15.7); Immature Grans % 0.7 %; Lymphocytes % 9.8 %; MCH 30.3 pg (27.0-33.0); MCHC 33.2 % (32.0-36.0); MCV 91 fL (80-95); MPV 9.3 fL (8.0-11.0); Monocytes % 6.3 %; Platelet Count 479 10^3/uL (130-400); RDW-SD 49.5 fL
[2024-10-12 06:38] LABS: Absolute Basophil Count 0.02 10^3/uL (0.0-0.2)
[2024-10-12 07:04] LABS: Anion Gap 9.2 mmol/L (3-11); BUN 26 mg/dL (7-18); CO2 30.8 mmol/L (21.0-32.0); Calcium 8.8 mg/dL (8.5-10.1); Chloride 94 mmol/L (98-107); Estimated GFR 57.66 (mL/min/1.73m2); Glucose 133 mg/dL (74-106); Magnesium 1.9 mg/dL (1.8-2.4); Potassium 3.7 mmol/L (3.5-5.1); Sodium 134 mmol/L (136-145)
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
[2024-10-12] MEDS: Furosemide 40 MG/4 ML VIAL IVP ×2 (07:58→17:47)
[2024-10-12] MEDS: Normal Saline Flush 10 ML SYR IVP ×4 (07:59→19:40)
[2024-10-12] MEDS: Aspirin 81 MG CHEW PO (08:01)
[2024-10-12] MEDS: Apixaban 5 MG TAB PO ×2 (08:01→19:39)
[2024-10-12] MEDS: hydroCHLOROthiazide 25 MG TAB PO (08:02)
[2024-10-12] MEDS: Multivitamin TAB 1 TAB PO (08:07)
[2024-10-12] MEDS: Insulin Aspart 300 UNITS/3 ML PEN SC ×3 (08:57→21:25)
--- NOTE | 2024-10-12 09:44 | W.INDIABCONS ---
Date of service: 10/12/24 Time of Service: 09:58 Diabetes Inpatient Consult Reason for Visit: received consult request regarding diabetes education and mgt. DESCRIPTION/ASSESSMENT: Gisel admitted via EMS after c/o of SOB and found with low O2 level. Being treated for acute hypoxic resp failure, CHF, AFib, low magnesium. Hx also of DMII and hypothyroidism, and HTN. A1C 6.2% yesterday with recent hx of 7.3% of less over the last 6+ years. 1,000mg Metformin is only diabetes med at home. Sodium 134 today (K+WNL) . GFR 57 today. Fasting glucose 133 this morning and 145 pre breakfast. - ordered for heart healthy consistent CHO diet with normal consistencies. Yesterday total protein lab wnl with low albumin at 2.8 - could be more indicative of inflammation - can get CRP and prealbumin to better assess protein status, howver pt with fair to good po intake last night. Discussed menu options with patient. She has no questions re: diabetes mgt at this time. She did take my card to contact re: outpatient nutrition services should she have questions or want to work on weight reduction to help improve sx. INTERVENTION: no aggressive nutrition intervention planned at this time. Will continue to monitor intake, glucose and nutrition-related labs, weight, and remain available for education/answer questions. Time Spent in Nutritional Counseling and Treatment: 5
--- NOTE | 2024-10-12 12:19 | NUR.NOTE ---
Nursing Note: Nurse updated by FUNNEL SETTER that patients BP was out of normal range and low. FUNNEL SETTER had taken manual blood pressure and SBP was in the 80's. Nurse at bedside to repeat vitals, O2 saturation in the 70's, nurse requested charge ask provider to come to bedside. Oxygen applied, saturation improved, manual BP remained in the 80's, nurse requested RT to besided, updated provider of change in patient status, requested provider come to bedside. Patient currently on 1 liter oxygen via NC 92%, patient SBP remains in the 80's see flow sheet, see new orders. Patients primary complaint is difficulty talking and feeling like theres phlegm making it hard to talk.
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
--- NOTE | 2024-10-12 12:45 | RT.EKG_ITS ---
APPROVED REPORT Exam: Resting ECG Reason for Exam: hypotension Patient Location: I HR:69 bpm ECG Measurements Heart Rate 69 AXIS AL [id number] P [id number] QRSd 124 QRS -58 QT 409 T 136 QTc 439 Conclusion Atrial flutter with predominant 4:1 AV block...A-rate 293, multiple Ps Left bundle branch block...QRSd>120, broad/notched R
--- NOTE | 2024-10-12 14:35 | PGE_ITS ---
Date of Service Date of service: 10/12/24 Time of Service: 14:35 Assessment and Plan Assessment and plan (1) Acute hypoxic respiratory failure: Status: Acute Assessment and plan: Had O2 requirement today and continued to have difficulty breathing. Albumin and lasix given * Continue supplemental oxygen to maintain SpO2 > 90%. * Monitor oxygen saturation regularly. (2) CHF (congestive heart failure): Status: Chronic Assessment and plan: The patient has no prior history of CHF, but her chest x-ray shows signs of pulmonary edema, and bedside echo demonstrates a reduced ejection fraction and plethoric IVC, consistent with heart failure. Her BNP is markedly elevated at 3500. Seen by Dr Nair - She should be considered for a sleep study. She has been given diuretics with some degree of improvement. Her echocardiogram shows preserved left ventricular systolic function. EF is 55%. There is no significant valvular disease. (3) Atrial fibrillation: Status: Chronic Assessment and plan: The patient is found to have new-onset atrial fibrillation on EKG with a rate of 88. She is not anticoagulated, and the symptoms have been ongoing for 8 days. She is at an increased risk for embolism and stroke. * Rate control: Continue with metoprolol (200mg daily) for heart rate control. * Anticoagulation: Given the recent onset and symptoms lasting for 8 days, start apixaban 5 mg BID per cardiology Patient has been appropriately started on anticoagulation with Eliquis. Her heart rate is controlled) * Electrolyte repletion: Ensure appropriate magnesium levels and continue repletion if needed. * Avoid rhythm control: Rhythm control (i.e., cardioversion) is contraindicated due to the risk of thromboembolism. * Monitor for signs of stroke or systemic embolism. (4) Hypomagnesemia: Status: Acute Assessment and plan: The patient's magnesium level is mildly low at 1.5, which could contribute to her atrial fibrillation and cardiac instability. * Repletion: Continue IV magnesium repletion as indicated. * Monitor magnesium levels closely and adjust as necessary. (5) Diabetes mellitus: Status: Chronic Assessment and plan: The patient has a known history of diabetes mellitus, with an ongoing need for blood sugar monitoring. * Monitor blood glucose levels: FS AC HS and SSI * Continue home medications: Hold Metformin * Monitor for signs of diabetic complications during hospitalization. (6) Hypothyroidism: Status: Chronic Assessment and plan: Continue home meds TSH pending (7) Hypotension: Status: Acute Assessment and plan: Patient did exhibit some hypotension earlier today, asymptomatic, no tachycardia. Patient was given hydrocortisone 100 mg. Hypotension resolved. Subjective Subjective Patient reports: no new complaints, tolerating liquids well, tolerating a regular diet, voiding w/o difficulty (nguyen catheter), bowel movement and shortness of breath; denies diarrhea, nausea or vomiting Interval history since last seen: Gisel continues to feel short of breath. Exam Narrative Exam Narrative: * General: Alert, in no respiratory distress. * HEENT: No jaundice. * Lungs: distant, clear bilaterally, no crackles. * CV: Irregular rhythm (atrial fibrillation) without ischemia, good perfusion. * Neurological: No deficits, able to speak in full sentences. * Skin: No cyanosis or rashes. Objective Last Vital Signs Temp 36.1 C L 10/12/24 12:54 Pulse 68 10/12/24 12:54 Resp 20 10/12/24 12:54 BP 102/50 L 10/12/24 12:54 Pulse Ox 92 10/12/24 13:20 Laboratory Results - last 24 hr 10/11/24 10/11/24 10/11/24 08:46 09:32 09:35 WBC RBC Hgb Hct MCV MCH MCHC RDW Plt Count MPV Immature Gran % Neutrophils % Lymphocytes % Monocytes % Eosinophils % Basophils % Nucleated RBC % Absolute Neutrophils Absolute Lymphocytes Absolute Monocytes Absolute Eosinophils Absolute Basophils Sodium Potassium Chloride Carbon Dioxide Anion Gap BUN Creatinine Est GFR (CKD-EPI 2020) Glucose Hemoglobin A1c 6.2 H Calcium Magnesium TSH 0.57 Add-On Test Request DONE 10/12/24 06:10 WBC 12.30 H RBC 3.50 L Hgb 10.6 L Hct 31.9 L MCV 91 MCH 30.3 MCHC 33.2 RDW 15.0 H Plt Count 479 H MPV 9.3 Immature Gran % 0.7 Neutrophils % 83.0 Lymphocytes % 9.8 Monocytes % 6.3 Eosinophils % 0.0 Basophils % 0.2 Nucleated RBC % 0.0 Absolute Neutrophils 10.21 H Absolute Lymphocytes 1.21 Absolute Monocytes 0.77 Absolute Eosinophils 0.00 Absolute Basophils 0.02 Sodium 134 L Potassium 3.7 Chloride 94 L Carbon Dioxide 30.8 Anion Gap 9.2 BUN 26 H Creatinine 1.0 Est GFR (CKD-EPI 2020) 57.66 Glucose 133 H Hemoglobin A1c Calcium 8.8 Magnesium 1.9 TSH Add-On Test Request Time Spent with Patient Time Spent with Patient: 25-34 minutes Time was spent: preparing to see the patient(eg.review tests), ordering medications,tests, procedures, referring, communicating with other health respite care provider, indepentently interpreting results, counseling the patient and care coordination
[2024-10-12] MEDS: Hydrocortisone SOD SUC. 100 MG VIAL IVP (16:12)
--- NOTE | 2024-10-12 16:45 | CHAPLAIN ---
Gisel was in bed when I visited. She appeared tired. She said she has had many people in her room today and was not up for more conversation. I'll check in another time.
[2024-10-12] MEDS: LORazepam 0.5 MG TAB PO (16:48)
[2024-10-12] MEDS: ALBUMIN HUMAN 25 GM/100 ML BTL IVPB (17:26)
[2024-10-12] MEDS: Melatonin 3 MG TAB 6 MG PO (19:39)
[2024-10-12] MEDS: Simvastatin 20 MG TAB PO (19:39)
--- NOTE | 2024-10-12 22:52 | RESPIRATORY ---
Pt sleeping and was placed on ra w/pulse ox in place. Over the course of about 5 minutes pt had a few desats to 88 and comes back up to 91-92 before having another short desat. Desats have not been prolonged, but 1lnc placed back on pt to maintain the 92% pulse ox that is ordered. -Plan to remove o2 in the morning and assess pt for remaining on her baseline of room air.
[2024-10-13] VITALS (12 sets, daily range): BP systolic 81–117; BP diastolic 47–64; PULSE 61–92; RESP 16–19; TEMP 36.2–36.5; O2SAT 91–95
[2024-10-13] MEDS: Levothyroxine 175 MCG TAB PO (06:16)
[2024-10-13 06:51] LABS: Abs Immature Grans 0.06 10^3/uL (0.0-0.06); Absolute Basophil Count 0.05 10^3/uL (0.0-0.2); Absolute Lymphocyte Count 2.29 10^3/uL (1.2-3.4); Basophils % 0.4 %; Eosinophils % 0.8 %; HCT 32.3 % (36.0-46.0); HGB 10.5 g/dL (11.2-15.7); Immature Grans % 0.5 %; Lymphocytes % 18.2 %; MCHC 32.5 % (32.0-36.0); MCV 92 fL (80-95); MPV 9.2 fL (8.0-11.0); Neutrophils % 72.1 %; Platelet Count 459 10^3/uL (130-400); RDW-SD 50.5 fL; WBC 12.56 10^3/uL (4.4-10.8)
[2024-10-13 06:56] LABS: Absolute Neutrophil Count 9.06 10^3/uL (1.2-6.7)
[2024-10-13 07:07] LABS: Anion Gap 4.2 mmol/L (3-11); BUN 27 mg/dL (7-18); CO2 36.8 mmol/L (21.0-32.0); CREATININE 0.9 mg/dL (0.55-1.02); Calcium 8.9 mg/dL (8.5-10.1); Chloride 96 mmol/L (98-107); Estimated GFR 65.44 (mL/min/1.73m2); Glucose 105 mg/dL (74-106); Sodium 137 mmol/L (136-145)
[2024-10-13 07:20] LABS: Potassium 2.9 mmol/L (3.5-5.1)
[2024-10-13] MEDS: Metoprolol CR 100 MG TABCR 200 MG PO (08:55)
[2024-10-13] MEDS: Calcium 600mg/Vit D 200U TAB 1 TAB PO (08:55)
[2024-10-13] MEDS: Losartan 50 MG TAB 100 MG PO (08:57)
[2024-10-13] MEDS: Apixaban 5 MG TAB PO ×2 (08:58→19:35)
[2024-10-13] MEDS: Aspirin 81 MG CHEW PO (08:58)
[2024-10-13] MEDS: Multivitamin TAB 1 TAB PO (08:58)
[2024-10-13] MEDS: amLODIPine 10 MG TAB PO (08:58)
[2024-10-13] MEDS: Normal Saline Flush 10 ML SYR IVP ×4 (09:00→19:37)
[2024-10-13] MEDS: Furosemide 40 MG/4 ML VIAL IVP ×2 (09:20→16:15)
[2024-10-13] MEDS: Potassium Chloride 20 MEQ TABCR 40 MEQ PO (09:21)
[2024-10-13] MEDS: POTASSIUM CHLORIDE 10 MEQ/100 ML BAG 100 MEQ IV_INF ×4 (09:22→13:32)
--- NOTE | 2024-10-13 09:32 | CMPROGNOTE_ITS ---
Date of service: 10/13/24 Time of Service: 09:32 Care Management Progress Note Progress Note Text Progress Note Text: Gisel has continued to require nc O2 since yesterday after being restarted on it. Her observation status was changed to inpatient for this reason, her continued need for O2. She was ordered for a PT consult today. PT is recommending SNF vs HHPT. Gisel was sitting up in the chair when CM met with her today. She looked better than she did yesterday, and was no longer wearing the O2, but she did require it for a good 24h. CM discussed discharge plans with Gisel. Gisel does not want to go to SNF. She has been in the past, and did not like it. She is open to new services of [facility] RN and PT/OT and is also open to a referral to the [facility], which was sent. Increased community supports and detention planning were requested. Gisel is still struggling with leaving her to go to live at her daughters. She knows that she is not healthy in her home, but feels her can not get by without her. CM met with Gisel for a second time today, she seems resigned to going to live with her daughter, Paulette. She stated that Paulette is open to her receiving services in her home. Discharge Potential Discharge Needs: PCP F/U Appt Anticipated Barriers to Discharge: None Identified Patient/Family Education Needs: Review discharge instructions, discuss Ask Me Three Transportation: Other (Gisel may need RCT. ) Plan: Gisel will be discharged home with possibly new services for HH RN and PT/OT. She will f/u with her PCP and with cardiology and continue per her plan of care. CM will continue to follow and update the plan as needed. Social Determinants of Health Screening Social Determinants of health last assessed in clinic: 10/13/24 Will the Patient Participate in the Screening?: Yes Do you worry about having a steady place to live?: no Problems where you live: no known problems In the past 12 months, have you had to go without electric, gas, oil or water in your home?: no 1. Within the past 12 months, we worried whether our food would run out before we got money to buy more.: Sometimes true 2. Within the past 12 months, the food we bought just didn't last and we didn't have money to get more.: Sometimes true Has lack of transportation kept you from medical appointments or from doing things needed for daily living?: no Has anyone in your life made you feel unsafe or unsupported?: no How hard is it for you to pay for the very basics like food, housing, medical care, and heating? Would you say it is:: Not hard at all Do you want help finding or keeping work or a job?: I do not need or want help If for any reason you need help with day-to-day activities such as bathing, pre paring meals, shopping, managing finances, etc., do you get the help you need?: I don?t need any help How often do you feel lonely or isolated from those around you?: Never Do you speak a language other than Uzbek at home?: No Does the patient want assistance with any of the above?: No Health Related Social Needs Health related social needs: food insecurity (Z59.41)
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
--- NOTE | 2024-10-13 12:28 | PGE_ITS ---
Date of Service Date of service: 10/13/24 Time of Service: 12:28 Assessment and Plan Assessment and plan (1) Acute hypoxic respiratory failure: Status: Acute Assessment and plan: Continues to have O2 requirement * Continue supplemental oxygen to maintain SpO2 > 90%. * Monitor oxygen saturation regularly. (2) CHF (congestive heart failure): Status: Chronic Assessment and plan: The patient has no prior history of CHF, but her chest x-ray shows signs of pulmonary edema, and bedside echo demonstrates a reduced ejection fraction and plethoric IVC, consistent with heart failure. Her BNP is markedly elevated at 3500. Seen by Dr Nair - She should be considered for a sleep study. She has been given diuretics with some degree of improvement. Her echocardiogram shows preserved left ventricular systolic function. EF is 55%. There is no sig nificant valvular disease. Continue lasix (3) Atrial fibrillation: Status: Chronic Assessment and plan: The patient is found to have new-onset atrial fibrillation on EKG with a rate of 88. She is not anticoagulated, and the symptoms have been ongoing for 8 days. She is at an increased risk for embolism and stroke. * Rate control: Continue with metoprolol (200mg daily) for heart rate control. * Anticoagulation: Given the recent onset and symptoms lasting for 8 days, start apixaban 5 mg BID per cardiology Patient has been appropriately started on anticoagulation with Eliquis. Her heart rate is controlled) * Electrolyte repletion: Ensure appropriate magnesium levels and continue repletion if needed. * Avoid rhythm control: Rhythm control (i.e., cardioversion) is contraindicated due to the risk of thromboembolism. * Monitor for signs of stroke or systemic embolism. (4) Hypomagnesemia: Status: Acute Assessment and plan: 2.0 today * Monitor magnesium levels closely and adjust as necessary. (5) Diabetes mellitus: Status: Chronic Assessment and plan: The patient has a known history of diabetes mellitus, with an ongoing need for blood sugar monitoring. * Monitor blood glucose levels: FS AC HS and SSI * Continue home medications: Hold Metformin * Monitor for signs of diabetic complications during hospitalization. (6) Hypothyroidism: Status: Chronic Assessment and plan: Continue home meds TSH pending (7) Hypotension: Status: Acute Assessment and plan: Midodrine started (8) Hypokalemia: Status: Acute Assessment and plan: Potassium 2.9 - 40 meq oral and 40 meq IV given Trend - Subjective Subjective Patient reports: no new complaints, feels better, tolerating liquids well, tolerating a regular diet, voiding w/o difficulty (nguyen) and afebrile; denies diarrhea, nausea or vomiting Interval history since last seen: Patient states she is feeling better in terms of breathing, however feeling exhausted. Exam Narrative Exam Narrative: * General: Alert, in no respiratory distress. * HEENT: No jaundice. * Lungs: distant, clear bilaterally, no crackles. * CV: Irregular rhythm (atrial fibrillation) without ischemia, good perfusion. * Neurological: No deficits, able to speak in full sentences. * Skin: No cyanosis or rashes. Objective Last Vital Signs Temp 36.2 C L 10/13/24 11:58 Pulse 78 10/13/24 11:58 Resp 16 10/13/24 11:58 BP 109/47 L 10/13/24 11:58 Pulse Ox 92 10/13/24 11:58 Laboratory Results - last 24 hr 10/13/24 06:02 WBC 12.56 H RBC 3.50 L Hgb 10.5 L Hct 32.3 L MCV 92 MCH 30.0 MCHC 32.5 RDW 15.0 H Plt Count 459 H MPV 9.2 Immature Gran % 0.5 Neutrophils % 72.1 Lymphocytes % 18.2 Monocytes % 8.0 Eosinophils % 0.8 Basophils % 0.4 Nucleated RBC % 0.0 Absolute Neutrophils 9.06 H Absolute Lymphocytes 2.29 Absolute Monocytes 1.00 H Absolute Eosinophils 0.10 Absolute Basophils 0.05 Sodium 137 Potassium 2.9 L* Chloride 96 L Carbon Dioxide 36.8 H Anion Gap 4.2 BUN 27 H Creatinine 0.9 Est GFR (CKD-EPI 2020) 65.44 Glucose 105 Calcium 8.9 Magnesium 2.0 Time Spent with Patient Time Spent with Patient: 25-34 minutes Time was spent: preparing to see the patient(eg.review tests), ordering medications,tests, procedures, referring, communicating with other health career services representative, indepentently interpreting results, counseling the patient and care coordination
--- NOTE | 2024-10-13 13:49 | PHA.REVIEW2 ---
Pharmacy Admission Review Admission Clinical Review Admission Pharmacy Review: Hypotension (Acute) Heart failure with preserved ejection fraction (Acute) Hypomagnesemia (Acute) Acute hypoxic respiratory failure (Acute) zolpidem tartrate (From Ambien) Adverse Reaction (Severe, Verified 10/11/24 08:44) Psychosis Resuscitation Status Full Code Height 5 ft 2 in Weight 122 kg Pharmacy Admission Review Renal Dosing Renal Dosing: BUN 27 mg/dL (7-18) H 10/13/24 06:02 Creatinine 0.9 mg/dL (0.55-1.02) 10/13/24 06:02 Medications needing adjustments: Reviewed (CrCl 57.72 mL/min) List of meds needing interventions: Current medications are okay Anticoagulation Anticoagulation: Hgb 10.5 g/dL (11.2-15.7) L 10/13/24 06:02 Hct 32.3 % (36.0-46.0) L 10/13/24 06:02 Plt Count 459 10^3/uL (130-400) H 10/13/24 06:02 Creatinine 0.9 mg/dL (0.55-1.02) 10/13/24 06:02 DVT Prophylaxis: Reviewed Medications: Apixaban (5mg BID) Relevant Labs Relevant Labs: Sodium 137 mmol/L (136-145) 10/13/24 06:02 Potassium 2.9 mmol/L (3.5-5.1) L* 10/13/24 06:02 Chloride 96 mmol/L (98-107) L 10/13/24 06:02 Magnesium 2.0 mg/dL (1.8-2.4) 10/13/24 06:02 Electrolytes, C-Reactive P, ESR: Reviewed (K 2.9 - given IV infusion this morning, ) DM Control DM Control: Glucose 105 mg/dL (74-106) 10/13/24 06:02 Hemoglobin A1c 6.2 % (<5.7) H 10/11/24 08:46 Finger Stick Blood Glucose 139 1204 Finger Stick Blood Glucose 139 1138 Finger Stick Blood Glucose 139 1138 Finger Stick Blood Glucose 109 0859 Finger Stick Blood Glucose 109 0750 Finger Stick Blood Glucose 109 0750 DM Control: Reviewed Insulin Dosing, Diabetic Medication: Has order for SS insulin Cardiac Review Cardiac Review: Troponin I Cancelled 10/11/24 11:41 NT-Pro-B Natriuret Pep 3546 pg/mL (<300) H 10/11/24 08:46 BP, HR, EF%: Reviewed (ZAHRA 109/47, HR WNL) List meds needing interventions: Has orders for amlodipine 10mg daily, furosemide 40mg IVP BID, losartan 100mg daily and metoprolol XL 200mg daily QTc Review QTc: Reviewed (439 from 10/12/24) IV to PO Switch IV Medications: Reviewed (furosemide) Home Meds Home Med List reviewed: Reviewed Relevent Home Meds Not ordered & why?: ibuprofen, HCTZ (was ordered and then discontinued), metformin (has order for SS insulin) Current Meds Current Medication Order Review: Intervened Comments: Changed IV ED access order
--- NOTE | 2024-10-13 15:33 | PT.INTREAT ---
PT Notes Visit Reasons: Congestive heart failure Inpatient Physical Therapy Treatment Note [facility] Date: 10/13/2024 PRECAUTIONS:nguyen, IV Access BUE, titrate Oxygen to keep sats >90% (Currently on RA) SUBJECTIVE: Pt reports she is very tired and would like to go to bed when session is done. OBJECTIVE:Pt presented seated in chair with BLE elevated. CM in room. IV infusing in Semaj GUZMÁN with dark output? PAIN: denies VITALS: ? Pre-Treatment: 105/60 seated ? Post-Treatment:86/45 supine Therapeutic Activities ([id number][]): Direct one-on-one instruction in dynamic activities to improve functional performance. ?? Provided skilled cues and instruction on performance including hand placement , posture and technique throughout. ? BED MOBILITY/TRANSFERS? Sit-supine: mod A for BLE ? Sit-stand: CGA x 3 trials? Stand-sit: CGA x 3 trials ? Chair-commode- chair: with FWW CGA ? Chair-bed: CGA with FWW Ambbulation: Facilitated safe and correct performance of level surface ambulation covering a distance of 20 feet x2 using use front wheeled walker with contact-guard assist . Did not report of any increased pain. Denied headache, chest pain, and lightheadedness throughout activity. Pt reported fatigue. Minimal verbal cueing provided for AD management, directional changes, and posture. ASSESSMENT:?Pt tolerated session. SHe noted feelings of fatigue d/t lack of sleep since she has been in the hospital. Pt presently limited by SHEPARD, low BPs , impaired BLE Muscle strength, edema BLE. Pt remains uncertain at this time if regarding her discharge disposition. Care Management continues to assist. Pt demonstrates potential to return to independent level with use of wheeled walker. PLAN: 1-2x/day, 7 days/week x 1 week. Plan of care has been reviewed with the WEB CONTENT & SOCIAL MEDIA MANAGER providing the service under Physical Therapy direction. Initiate Physical Therapy intervention for strengthening, bed mobility, transfers, gait, stairs, balance training, use of assistive device. TREATMENT CODE/TIME: 33078/ [id number] DISCHARGE RECOMMENDATION: SNF vs HHPT
[2024-10-13] MEDS: Midodrine 2.5 MG TAB PO ×2 (17:49→19:34)
[2024-10-13] MEDS: Melatonin 3 MG TAB 6 MG PO (19:34)
[2024-10-13] MEDS: Simvastatin 20 MG TAB PO (19:35)
[2024-10-13] MEDS: Insulin Aspart 300 UNITS/3 ML PEN SC (21:30)
[2024-10-14] VITALS: BP 104/49; PULSE 83; RESP 19; TEMP 36.4; O2SAT 93
[2024-10-14 02:59] VITALS: BP 88/47; PULSE 91; RESP 19; TEMP 36.1; O2SAT 91
[2024-10-14] MEDS: Levothyroxine 175 MCG TAB PO (05:51)
[2024-10-14 07:42] VITALS: BP 206/91; PULSE 93; RESP 17; TEMP 36.6; O2SAT 92
[2024-10-14 07:49] VITALS: BP 180/120
[2024-10-14 08:18] LABS: Abs Immature Grans 0.04 10^3/uL (0.0-0.06); Absolute Basophil Count 0.04 10^3/uL (0.0-0.2); Absolute Eosinophil Count 0.25 10^3/uL (0.0-0.7); Absolute Lymphocyte Count 1.89 10^3/uL (1.2-3.4); Absolute Monocyte Count 0.83 10^3/uL (0.1-0.8); Absolute Neutrophil Count 7.46 10^3/uL (1.2-6.7); Basophils % 0.4 %; Eosinophils % 2.4 %; HGB 12.2 g/dL (11.2-15.7); Immature Grans % 0.4 %; MCH 29.3 pg (27.0-33.0); MCHC 32.1 % (32.0-36.0); MCV 91 fL (80-95); Monocytes % 7.9 %; Neutrophils % 70.9 %; Platelet Count 511 10^3/uL (130-400); RBC 4.16 10^6/uL (3.93-5.22); RDW-SD 49.8 fL; WBC 10.51 10^3/uL (4.4-10.8)
[2024-10-14] MEDS: amLODIPine 10 MG TAB PO (08:23)
[2024-10-14] MEDS: Aspirin 81 MG CHEW PO (08:24)
[2024-10-14] MEDS: Multivitamin TAB 1 TAB PO (08:24)
[2024-10-14] MEDS: Losartan 50 MG TAB 100 MG PO (08:24)
[2024-10-14] MEDS: Apixaban 5 MG TAB PO (08:24)
[2024-10-14] MEDS: Calcium 600mg/Vit D 200U TAB 1 TAB PO (08:24)
[2024-10-14] MEDS: Metoprolol CR 100 MG TABCR 200 MG PO (08:24)
[2024-10-14] MEDS: Furosemide 40 MG/4 ML VIAL IVP (08:25)
[2024-10-14 08:32] LABS: Anion Gap 4.9 mmol/L (3-11); BUN 21 mg/dL (7-18); CO2 34.1 mmol/L (21.0-32.0); Chloride 95 mmol/L (98-107); Estimated GFR 57.66 (mL/min/1.73m2); Glucose 121 mg/dL (74-106); Magnesium 1.7 mg/dL (1.8-2.4); Potassium 3.4 mmol/L (3.5-5.1); Sodium 134 mmol/L (136-145)
--- NOTE | 2024-10-14 09:38 | PDOC.CMPRO ---
Date of service: 10/14/24 Time of Service: 09:38 Care Management Progress Note Discharge Potential Discharge Needs: PCP F/U Appt Anticipated Barriers to Discharge: None Identified Patient/Family Education Needs: Review discharge instructions, discuss Ask Me Three Transportation: Other (possible RCT) Plan: Gisel will be discharged home with possible new services for HH RN, PT, OT. She will f/u with her PCP, cardiology and continue per her plan of care. CM will continue to follow and update the plan as needed. Social Determinants of Health Screening Social Determinants of health last assessed in clinic: 10/13/24 Will the Patient Participate in the Screening?: Yes Do you worry about having a steady place to live?: no Problems where you live: no known problems In the past 12 months, have you had to go without electric, gas, oil or water in your home?: no Has lack of transportation kept you from medical appointments or from doing things needed for daily living?: no Has anyone in your life made you feel unsafe or unsupported?: no How hard is it for you to pay for the very basics like food, housing, medical care, and heating? Would you say it is:: Not hard at all Do you want help finding or keeping work or a job?: I do not need or want help If for any reason you need help with day-to-day activities such as bathing, preparing meals, shopping, managing finances, etc., do you get the help you need?: I don?t need any help How often do you feel lonely or isolated from those around you?: Never Do you speak a language other than Malay at home?: No Does the patient want assistance with any of the above?: No
--- NOTE | 2024-10-14 09:46 | PGE_ITS ---
Date of Service Date of service: 10/14/24 Time of Service: 09:46 Assessment and Plan Assessment and plan (1) Acute hypoxic respiratory failure: Status: Acute Assessment and plan: Continues to have O2 requirement * Continue supplemental oxygen to maintain SpO2 > 90%. * Monitor oxygen saturation regularly. (2) CHF (congestive heart failure): Status: Chronic Assessment and plan: The patient has no prior history of CHF, but her chest x-ray shows signs of pulmonary edema, and bedside echo demonstrates a reduced ejection fraction and plethoric IVC, consistent with heart failure. Her BNP is markedly elevated at 3500. Seen by Dr Nair - She should be considered for a sleep study. She has been given diuretics with some degree of improvement. Her echocardiogram shows preserved left ventricular systolic function. EF is 55%. There is no sig nificant valvular disease. Continue lasix (3) Atrial fibrillation: Status: Chronic Assessment and plan: The patient is found to have new-onset atrial fibrillation on EKG with a rate of 88. She is not anticoagulated, and the symptoms have been ongoing for 8 days. She is at an increased risk for embolism and stroke. * Rate control: Continue with metoprolol (200mg daily) for heart rate control. * Anticoagulation: Given the recent onset and symptoms lasting for 8 days, start apixaban 5 mg BID per cardiology Patient has been appropriately started on anticoagulation with Eliquis. Her heart rate is controlled) * Electrolyte repletion: Ensure appropriate magnesium levels and continue repletion if needed. * Avoid rhythm control: Rhythm control (i.e., cardioversion) is contraindicated due to the risk of thromboembolism. * Monitor for signs of stroke or systemic embolism. (4) Hypomagnesemia: Status: Acute Assessment and plan: 2.0 today * Monitor magnesium levels closely and adjust as necessary. (5) Diabetes mellitus: Status: Chronic Assessment and plan: The patient has a known history of diabetes mellitus, with an ongoing need for blood sugar monitoring. * Monitor blood glucose levels: FS AC HS and SSI * Continue home medications: Hold Metformin * Monitor for signs of diabetic complications during hospitalization. (6) Hypothyroidism: Status: Chronic Assessment and plan: Continue home meds TSH pending (7) Hypotension: Status: Acute Assessment and plan: Midodrine started (8) Hypokalemia: Status: Acute Assessment and plan: Potassium 2.9 - 40 meq oral and 40 meq IV given Trend - Objective Last Vital Signs Temp 36.6 C 10/14/24 07:42 Pulse 93 H 10/14/24 07:42 Resp 17 10/14/24 07:42 BP 180/120 H 10/14/24 07:49 Pulse Ox 92 10/14/24 07:42 Laboratory Results - last 24 hr 10/14/24 07:56 WBC 10.51 RBC 4.16 Hgb 12.2 Hct 38.0 MCV 91 MCH 29.3 MCHC 32.1 RDW 15.0 H Plt Count 511 H MPV 9.0 Immature Gran % 0.4 Neutrophils % 70.9 Lymphocytes % 18.0 Monocytes % 7.9 Eosinophils % 2.4 Basophils % 0.4 Nucleated RBC % 0.0 Absolute Neutrophils 7.46 H Absolute Lymphocytes 1.89 Absolute Monocytes 0.83 H Absolute Eosinophils 0.25 Absolute Basophils 0.04 Sodium 134 L Potassium 3.4 L Chloride 95 L Carbon Dioxide 34.1 H Anion Gap 4.9 BUN 21 H Creatinine 1.0 Est GFR (CKD-EPI 2020) 57.66 Glucose 121 H Calcium 9.0 Magnesium 1.7 L
[2024-10-14 10:03] VITALS: BP 88/60; PULSE 82
[2024-10-14] MEDS: Normal Saline Flush 10 ML SYR IVP (10:05)
[2024-10-14] MEDS: Midodrine 2.5 MG TAB PO ×2 (10:50→13:37)
--- NOTE | 2024-10-14 11:13 | CMDISCH_ITS ---
Date of service: 10/14/24 Time of Service: 11:13 LACE Index Scoring Tool Questions: Length of Stay (in days): 3 Was the patient admitted via the E.D.?: Yes Comorbidities: Diabetes w/o Complication and Congestive Heart Failure E.D. Visits: 1 Answers: Total Score: 10 Risk of Readmission: High Risk Care Management Discharge Plan Reason for Hospitalization: CHF Discharge Plan: Gisel will be discharged home with new services for HH RN, PT/OT. She will f/u with her PCP, cardiology and continue per her plan of care. Gisel will transport via private vehicle by [facility]. Patient/Family Education Needs: Review discharge instructions, activity, limitations, and plan of care, as directed. Discuss Ask Me Three. Services Needed at Discharge: Home Health Care Services SDOH Health Related Social Needs: Health related social needs food insecurity (Z59.41) Health related social needs details provider aware
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
[2024-10-14] MEDS: Insulin Aspart 300 UNITS/3 ML PEN SC (12:11)
[2024-10-14] MEDS: Potassium Chloride 20 MEQ TABCR PO (12:12)
[2024-10-14] MEDS: MAGNESIUM SULFATE 4 GM/100 ML BAG IV_INF (12:12)
--- NOTE | 2024-10-14 12:26 | PT.INTREAT ---
PT Notes Visit Reasons: Congestive heart failure Inpatient Physical Therapy Treatment Note [facility] Date: 10/14/2024 PRECAUTIONS:nguyen, IV Access BUE, titrate Oxygen to keep sats >90% (Currently on RA) SUBJECTIVE: Pt reports she is very tired and has been a very stressful night and morning. OBJECTIVE:Pt presented supine in bed with pillow over eyes, easily woke to name and knock on door, Nguyen with red tinged urine output? PAIN: denies VITALS: ?monitored via telemetry throughout Therapeutic Activities ([id number][]): Direct one-on-one instruction in dynamic activities to improve functional performance. ?? Provided skilled cues and instruction on performance including hand placement , posture and technique throughout. ? BED MOBILITY/TRANSFERS? supine to sit supervision ? Sit-stand: SBA x 3 trials? Stand-sit: SBA x 3 trials ? bed- chair: with FWW SBA ? Chair-commode - chair:SBA with FWW Ambbulation: Facilitated safe and correct performance of level surface ambulation covering a distance of 20 feet x2 using use front wheeled walker with CG assist . Did not report of any increased pain. Denied headache, chest pain, and lightheadedness throughout activity. Pt reported fatigue. Minimal verbal cueing provided for AD management, directional changes, and posture. ASSESSMENT:?Pt tolerated session. Pt with impaired activity tolerance and instability during ambulation with FWW. Pt with stagger step x 1 needing CGA to regain. Pt continue with lower BP per Nurse pt denies symptoms although reports fatigue and no energy as walking. PLAN: 1-2x/day, 7 days/week x 1 week. Plan of care has been reviewed with the LITIGATION ASSOCIATE providing the service under Physical Therapy direction. Initiate Physical Therapy intervention for strengthening, bed mobility, transfers, gait, stairs, balance training, use of assistive device. TREATMENT CODE/TIME: 02208/ [id number] DISCHARGE RECOMMENDATION: SNF vs HHPT
[2024-10-14 12:34] VITALS: BP 95/59; PULSE 83; RESP 16; TEMP 35.8; O2SAT 91
--- NOTE | 2024-10-14 14:17 | PDOC.HHF2F ---
Home Health Referral Home Health Orders Clinical synopsis of why skilled professionals are needed: This is a 79-year-old female with a medical history significant for hypertension, diabetes, endometrial carcinoma, and hypothyroidism who presented to the ED on 10/11/24 for evaluation of acute onset of shortness of breath and hypoxia. The patient was hypoxic in the 60's with saturation in oxygen improving to 94% on 6l/min via mask. Workup in the ED was positive for pulmonary edema as per imaging, POCUS showing a plethoric IVC, BNP 3500 for which IV lasix was administered, hypomagnesemia followed by supplementation. EKG showed atrial fibrillation with MVR with negative ACS findings; anticoagulation was initiated with Eliquis. The patient was admitted to the medical surgical floor under the hospitalist service for hypoxic respiratory failure in the setting of new onset CHF with ongoing IV Lasix treatment. Cardiology consult was completed with agreement regarding anticoagulation and atrial fibrillation rate control management with metoprolol succinate. Echocardiogram completed with the following conclusions: Mild concentric left ventricular hypertrophy. Ejection fraction is 55%. Wall motion is normal Normal right ventricular size and function Both atria are moderately enlarged There are no structural valvular abnormalities Trace aortic regurgitation Moderate mitral regurgitation Mild tricuspid regurgitation. Estimated right ventricular systolic pressure is 55 mmHg Ascending aorta measures 3.87 cm On the days of discharge the patient was hemodynamically stable without oxygen requirement and will be discharged home with home health physical and occupational therapy as well as nursing. Follow-up with the PCP within 7 days of discharge please.Electronic scripts sent for furosemide, Eliquis acetaminophen and docusate with recommendation not to take NSAIDs. Recommendation for PCP follow-up: Referral to cardiology Sleep study Discussed with Dr. Keyes Registered Nurse: Check all that apply Instruct on new or changed medication(s)/assess compliance: Ordered Assess for exacerbation of medical condition, instruct patient/caregivers on signs and symptoms to report for early detection: Ordered Physical Therapist: Check all that apply Increase strength & endurance for safe mobility at home: Ordered To design/establish home maintenance program: Ordered Home safety evaluation and teaching/gait training including stair management (if applicable): Ordered Occupational Therapist: Evaluate and treat for patient unable to perform ADL/IADL/self-care: Ordered Upper extremity strengthening, range and motion: Ordered Home Bound Status Requires the aid of supportive device (check all that apply): Walker Describe why leaving home would require a considerable and taxing effort: Requires frequent rest periods Encounter Date and Reason: I certify that a FTF encounter for this patient was performed on October 14, 2024 and that such encounter was related to the primary reason the patient requires home health services. The encounter was conducted in the following manner: By me as the certifying physician, HOME APPLIANCE TECHNICIAN, PA or By an inpatient physician, HOME APPLIANCE TECHNICIAN or PA during an inpatient stay who communicated findings to me, Certification And Authentication I certify that I composed the above information based on my clinical judgment relating to this patient's medical condition and, if applicable, clinical findings communicated to me by the NPP or inpatient physician who performed the FTF encounter. Name of Provider that will be monitoring home health services: Mikel Polanco
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
== END 2024-10-14 15:19 | disposition hospice, home (50) | DRG 291 ==
LOC: ER 12:31 → MS 10-12 09:23
PROVIDERS: Admitting Provider Nurse Practitioner Family; Emergency Provider Emergency Medicine; PCP Nurse Practitioner Family; Responsible Provider Nurse Practitioner Acute Care; Visit Provider Hospitalist
DX: I11.0 Hypertensive heart disease with heart failure (principal); I50.31 Acute diastolic (congestive) heart failure; J96.01 Acute respiratory failure with hypoxia; I48.91 Unspecified atrial fibrillation; E83.42 Hypomagnesemia; E11.620 Type 2 diabetes mellitus with diabetic dermatitis; I95.9 Hypotension, unspecified; E87.6 Hypokalemia; Z96.641 Presence of right artificial hip joint; Z85.42 Personal history of malignant neoplasm of other parts of uterus; Z79.84 Long term (current) use of oral hypoglycemic drugs; E89.0 Postprocedural hypothyroidism; K21.9 Gastro-esophageal reflux disease without esophagitis; E78.5 Hyperlipidemia, unspecified; R79.1 Abnormal coagulation profile
CPT/HCPCS: 00123; 36415; 51702; 71275; 80048; 80053; 82805; 93005; 93306; 93308; 94640; 96365; 96366; 96375; 97162; 97530; 99222; 99291; J1650; 71045; 81003; 81015; 83036; 83735; 83880; 84443; 84484; 85025; 85379; 93010; 94760; 99231; 99239; J1720; J1815; J1938; J2919; J3475; J3480; J3490; J7620; P9047

== ENCOUNTER → 2024-10-12 09:06 | Outpatient (BNVA) | payer MEDICARE, MEDICAID, SELFPAY | PROVIDERS: PCP Nurse Practitioner Family; Referring Provider Nurse Practitioner Family; Visit Provider Internal Medicine Cardiovascular Disease ==

== ENCOUNTER → 2024-10-14 11:27 | Outpatient (BNVA) | payer MEDICARE, MEDICAID, SELFPAY | PROVIDERS: PCP Nurse Practitioner Family; Referring Provider Nurse Practitioner Family; Visit Provider Urology ==

== ENCOUNTER 2024-10-22 17:01 | Outpatient (REF) | payer MEDICARE, MEDICAID, SELFPAY ==
[2024-10-22 17:46] LABS: Anion Gap 6.9 mmol/L (3-11); BUN 39 mg/dL (7-18); CO2 34.1 mmol/L (21.0-32.0); CREATININE 1.5 mg/dL (0.55-1.02); Calcium 9.4 mg/dL (8.5-10.1); Chloride 98 mmol/L (98-107); Estimated GFR 35.45 (mL/min/1.73m2); Glucose 97 mg/dL (74-106); Potassium 3.1 mmol/L (3.5-5.1); Sodium 139 mmol/L (136-145)
== END 2024-10-22 17:02 | disposition home or self-care (01) ==
LOC: LBN 17:01
PROVIDERS: PCP Nurse Practitioner Family; Visit Provider Nurse Practitioner Family
DX: E11.9 Type 2 diabetes mellitus without complications (principal); I11.0 Hypertensive heart disease with heart failure; E87.6 Hypokalemia
CPT/HCPCS: 80048

== ENCOUNTER 2024-10-26 13:43 | Inpatient (IN) | payer MEDICARE, MEDICAID, SELFPAY ==
[2024-10-26] VITALS (36 sets, daily range): BP systolic 72–133; BP diastolic 38–114; PULSE 59–82; RESP 13–28; TEMP 36.5–37.4; O2SAT 91–98
--- NOTE | 2024-10-26 14:00 | RT.EKG_ITS ---
APPROVED REPORT Exam: Resting ECG Reason for Exam: hypotension, a-fib Patient Location: E HR:71 bpm ECG Measurements Heart Rate 71 AXIS VA [id number] P [id number] QRSd 129 QRS -57 QT 433 T 80 QTc 470 Conclusion Atrial fibrillation, rate 71 LBBB, unchanged from priors No STEMI
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
[2024-10-26 14:29] LABS: Abs Immature Grans 0.05 10^3/uL (0.0-0.06); Absolute Basophil Count 0.08 10^3/uL (0.0-0.2); Absolute Lymphocyte Count 2.21 10^3/uL (1.2-3.4); Absolute Neutrophil Count 10.47 10^3/uL (1.2-6.7); Basophils % 0.6 %; Eosinophils % 0.6 %; HGB 12.5 g/dL (11.2-15.7); Immature Grans % 0.4 %; Lymphocytes % 15.9 %; MCH 30.2 pg (27.0-33.0); MCHC 32.9 % (32.0-36.0); MCV 92 fL (80-95); MPV 9.7 fL (8.0-11.0); Monocytes % 7.2 %; Neutrophils % 75.3 %; Platelet Count 422 10^3/uL (130-400); RBC 4.14 10^6/uL (3.93-5.22); RDW 15.2 % (11.7-14.6)
[2024-10-26 14:32] LABS: Absolute Eosinophil Count 0.08 10^3/uL (0.0-0.7)
[2024-10-26] MEDS: Lactated Ringers 500 ML IV ×2 (14:33→17:38)
[2024-10-26 14:53] LABS: ALT 15 U/L (14-59); AST 14 U/L (15-37); Albumin 3.2 g/dL (3.4-5.0); Alkaline Phosphatase 107 U/L (46-116); Anion Gap 9.9 mmol/L (3-11); Bilirubin, Total 0.7 mg/dL (0.2-1.0); CO2 31.1 mmol/L (21.0-32.0); CREATININE 2.4 mg/dL (0.55-1.02); Calcium 9.3 mg/dL (8.5-10.1); Chloride 95 mmol/L (98-107); Estimated GFR 20.17 (mL/min/1.73m2); Glucose 114 mg/dL (74-106); Magnesium 1.3 mg/dL (1.8-2.4); NT-proBNP 3519 pg/mL (<300); Potassium 3.1 mmol/L (3.5-5.1); Sodium 136 mmol/L (136-145); Total Protein 7.8 g/dL (6.4-8.2); Troponin I 16 ng/L (<or=51)
[2024-10-26 14:55] LABS: BUN 95 mg/dL (7-18)
[2024-10-26] MEDS: MAGNESIUM SULFATE 2 GM/50 ML BAG IV_INF (15:10)
[2024-10-26] MEDS: Potassium Chloride 20 MEQ TABCR 40 MEQ PO (15:11)
[2024-10-26 16:16] LABS: Troponin I 18 ng/L (<or=51)
--- NOTE | 2024-10-26 16:30 | DI.RAD_ITS ---
Exam(s) XR CHEST 2V PA LATERAL EXAM: XR CHEST 2V PA LATERAL CLINICAL HISTORY: eval pna, leukocytosis TECHNIQUE: 2D digital imaging was performed. Two views. COMPARISON: CR XR PORTABLE CHEST AP from 10/12/2024 FINDINGS: The exam is limited by low lung volumes. Monitoring leads overlie the chest. HEART: Normal size. Aorta: Not dilated. PULMONARY VASCULATURE: Normal. MEDIASTINUM: Unremarkable. LUNGS: Clear. No visible infiltrates. PLEURAL SPACE: No pleural effusion or pneumothorax. BONE:Unremarkable for age. SOFT TISSUES: Unremarkable. IMPRESSION: Limited exam. No acute abnormality. DATA REPOSITORY: RADIATION DOSE DELIVERED:
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
[2024-10-26 16:58] LABS: Bilirubin Negative (Negative); Blood Negative (Negative); Clarity Clear (Clear); Glucose Negative (Negative); Ketones Negative (Negative); Leukocyte Esterase Small (Negative); Nitrite Negative (Negative); Specific Gravity <= 1.005 (1.005-1.025); Urobilinogen 0.2 mg/dL (Up to 0.2); pH 5.5 (5-8)
[2024-10-26 17:04] LABS: Bacteria Rare HPF (Negative); C & S Indicated? No; Casts 3-5 Hyaline LPF (Negative); Crystals Negative HPF (Negative); Epithelial Cells Many HPF (Negative); Mucus Moderate (Negative); RBC Negative HPF (0-2)
--- NOTE | 2024-10-26 17:40 | W.PC.ACHO ---
Registration Status: REG ER Primary Language: Preferred Language: Frisian ED Information & Data Chief Complaint GenMedical 10/26/24 14:20 Triage Note POV sent in by home health 10/26/24 13:47 for low BP. States that it has been low since last night. Denies SOB or dizziness. Waw recently admitted for CHF. Medical / Surgical History (Last Reviewed 10/22/24 @ 13:52 by Mikel Polanco NP) Hypokalemia Hypotension Hypomagnesemia CHF (congestive heart failure) Wound healing, delayed (04/14/17) HTN (hypertension) Depressive disorder History of total right hip replacement (Last Reviewed 10/22/24 @ 13:52 by Mikel Polanco NP) History of bilateral ligation of fallopian tubes Ligation of fallopian tube Total replacement of hip (12/18/15) Lobectomy Hysterectomy Colonoscopy - MAC (12/18/16) Cervical Conization/LEEP Most Recent Vital Signs Temperature 36.5 C 10/26/24 13:47 Temperature Source Oral 10/26/24 13:47 Pulse 71 10/26/24 17:30 Pulse 71 10/26/24 17:30 Respiratory Rate 20 10/26/24 17:30 Blood Pressure 85/56 L 10/26/24 17:27 Blood Pressure Mean 66 10/26/24 17:27 Blood Pressure Position Sitting 10/26/24 13:47 Pulse Oximetry 94 10/26/24 17:30 Oxygen Delivery Method Room Air 10/26/24 13:47 Oxygen Flow Rate 0 10/26/24 13:47 Pain Level 0 10/26/24 14:36 Comment MD aware of BPs 10/26/24 14:46 Allergies zolpidem tartrate (From Ambien) Adverse Reaction (Severe, Verified 10/26/24 13:50) Psychosis Precautions Isolation Standard precaution 10/26/24 13:50 Active Medications Generic Name Dose Route Start Last Admin Trade Name Freq PRN Reason Stop Dose Admin Ringer's Solution 500 mls @ 500 mls/hr 10/26/24 17:35 10/26/24 17:38 IV 10/26/24 18:34 500 mls/hr BOLUS ONE Administration IV IV Catheter Type [Left Saline Lock Antecubital] IV Catheter Type [Right Peripheral IV Antecubital] IV Catheter Gauge [Left 18 Antecubital] IV Catheter Gauge [Right 18 Antecubital] Diet Orders Category Date Time Status Regular/Normal [DIET] Nutrition 10/26/24 Dinner Active Diagnostics 10/26/24 10/26/24 10/26/24 Range/Units 17:12 16:53 16:40 WBC (4.4-10.8) 10^3/uL RBC (3.93-5.22) 10^6/uL Hgb (11.2-15.7) g/dL Hct (36.0-46.0) % MCV (80-95) fL MCH (27.0-33.0) pg MCHC (32.0-36.0) % RDW (11.7-14.6) % Plt Count (130-400) 10^3/uL MPV (8.0-11.0) fL Immature Gran % % Neutrophils % % Lymphocytes % % Monocytes % % Eosinophils % % Basophils % % Nucleated RBC % (0.0-0.3) % Absolute Neutrophils (1.2-6.7) 10^3/uL Absolute Lymphocytes (1.2-3.4) 10^3/uL Absolute Monocytes (0.1-0.8) 10^3/uL Absolute Eosinophils (0.0-0.7) 10^3/uL Absolute Basophils (0.0-0.2) 10^3/uL Sodium (136-145) mmol/L Potassium (3.5-5.1) mmol/L Chloride (98-107) mmol/L Carbon Dioxide (21.0-32.0) mmol/L Anion Gap (3-11) mmol/L BUN (7-18) mg/dL Creatinine (0.55-1.02) mg/dL Est GFR (CKD-EPI 2020) (mL/min/1.73m2) Glucose (74-106) mg/dL Calcium (8.5-10.1) mg/dL Magnesium (1.8-2.4) mg/dL Total Bilirubin (0.2-1.0) mg/dL AST (15-37) U/L ALT (14-59) U/L Alkaline Phosphatase (46-116) U/L Troponin I Cancelled (<or=51) ng/L NT-Pro-B Natriuret Pep (<300) pg/mL Total Protein (6.4-8.2) g/dL Albumin (3.4-5.0) g/dL TSH Pending Urine Color Yellow (Yellow) Urine Clarity Clear (Clear) Urine pH 5.5 (5-8) Ur Specific [place] <= 1.005 (1.005-1.025) Urine Protein Negative (Neg-Trace) mg/dL Urine Ketones Negative (Negative) mg/dL Urine Blood Negative (Negative) Urine Nitrite Negative (Negative) Urine Bilirubin Negative (Negative) Urine Urobilinogen 0.2 (Up to 0.2) mg/dL Ur Leukocyte Esterase Small H (Negative) Urine RBC Negative (0-2) HPF Urine WBC 5-10 (0-5) HPF Ur Epithelial Cells Many (Negative) HPF Urine Crystals Negative (Negative) HPF Urine Bacteria Rare (Negative) HPF Urine Casts 3-5 Hyaline (Negative) LPF Urine Mucus Moderate (Negative) Ur Culture Indicated? No Urine Glucose Negative (Negative) mg/dL 10/26/24 10/26/24 Range/Units 15:30 14:21 WBC 13.90 H (4.4-10.8) 10^3/uL RBC 4.14 (3.93-5.22) 10^6/uL Hgb 12.5 (11.2-15.7) g/dL Hct 38.0 (36.0-46.0) % MCV 92 (80-95) fL MCH 30.2 (27.0-33.0) pg MCHC 32.9 (32.0-36.0) % RDW 15.2 H (11.7-14.6) % Plt Count 422 H (130-400) 10^3/uL MPV 9.7 (8.0-11.0) fL Immature Gran % 0.4 % Neutrophils % 75.3 % Lymphocytes % 15.9 % Monocytes % 7.2 % Eosinophils % 0.6 % Basophils % 0.6 % Nucleated RBC % 0.0 (0.0-0.3) % Absolute Neutrophils 10.47 H (1.2-6.7) 10^3/uL Absolute Lymphocytes 2.21 (1.2-3.4) 10^3/uL Absolute Monocytes 1.00 H (0.1-0.8) 10^3/uL Absolute Eosinophils 0.08 (0.0-0.7) 10^3/uL Absolute Basophils 0.08 (0.0-0.2) 10^3/uL Sodium 136 (136-145) mmol/L Potassium 3.1 L (3.5-5.1) mmol/L Chloride 95 L (98-107) mmol/L Carbon Dioxide 31.1 (21.0-32.0) mmol/L Anion Gap 9.9 (3-11) mmol/L BUN 95 H* (7-18) mg/dL Creatinine 2.4 H (0.55-1.02) mg/dL Est GFR (CKD-EPI 2020) 20.17 (mL/min/1.73m2) Glucose 114 H (74-106) mg/dL Calcium 9.3 (8.5-10.1) mg/dL Magnesium 1.3 L (1.8-2.4) mg/dL Total Bilirubin 0.7 (0.2-1.0) mg/dL AST 14 L (15-37) U/L ALT 15 (14-59) U/L Alkaline Phosphatase 107 (46-116) U/L Troponin I 18 16 (<or=51) ng/L NT-Pro-B Natriuret Pep 3519 H (<300) pg/mL Total Protein 7.8 (6.4-8.2) g/dL Albumin 3.2 L (3.4-5.0) g/dL TSH Urine Color (Yellow) Urine Clarity (Clear) Urine pH (5-8) Ur Specific [place] (1.005-1.025) Urine Protein (Neg-Trace) mg/dL Urine Ketones (Negative) mg/dL Urine Blood (Negative) Urine Nitrite (Negative) Urine Bilirubin (Negative) Urine Urobilinogen (Up to 0.2) mg/dL Ur Leukocyte Esterase (Negative) Urine RBC (0-2) HPF Urine WBC (0-5) HPF Ur Epithelial Cells (Negative) HPF Urine Crystals (Negative) HPF Urine Bacteria (Negative) HPF Urine Casts (Negative) LPF Urine Mucus (Negative) Ur Culture Indicated? Urine Glucose (Negative) mg/dL Intake and Output - 24 Hour Total 10/26/24 13:43 thru 10/26/24 17:00 Intake Total 1241.667 Balance 1241.667 Weight 115.666 kg Intake: IV 1241.667 Falls Risk Assessment History of Falls Previous History 10/26/24 14:36 Contributing Factors Unstable 10/26/24 14:36 Ambulatory Aids Uses ambulatory device 10/26/24 14:36 Tubes/Lines With any additional score 10/26/24 14:36 Gait Evaluation W/any additional score 10/26/24 14:36 Cognition No cognitive impairment 10/26/24 14:36 Fall Total Score 73 10/26/24 14:36 Level of Risk High Risk 10/26/24 14:36 Problems (Last Reviewed 10/22/24 @ 13:52 by Mikel Polanco NP) MARKEL (acute kidney injury) (Acute) Hypotension due to hypovolemia (Acute) Heart failure with preserved ejection fraction (Acute) Atrial fibrillation (Chronic) History of partial thyroidectomy (Chronic) Essential hypertension (Chronic 03/12/13) Hyperlipidemia (Chronic 10/28/12) Diabetes mellitus (Chronic 12/23/12) v v v v v v v v v Sending and/or Receiving Nurses: Please use comment section below to note any information pertinent to the patient hand-off not included above. Information / Comments: Report received from: Called ED at 1703 received report for ED RN, patient to go to xray before being transfer to med surg unit, IV fluids given, blood pressure trending low with recovery post IVF. at 1740 awaiting patient to arrive to med surg unit
[2024-10-26 18:14] LABS: TSH (W/Ref FT4) 0.37 uIU/mL (0.36-3.74)
[2024-10-26] MEDS: Lactated Ringers 1,000 ML 150 ML IV (18:49)
[2024-10-26] MEDS: Simvastatin 20 MG TAB PO (19:59)
[2024-10-26] MEDS: Apixaban 5 MG TAB PO (19:59)
[2024-10-26] MEDS: Normal Saline Flush 10 ML SYR IVP (22:58)
[2024-10-27] VITALS (8 sets, daily range): BP systolic 91–112; BP diastolic 49–73; PULSE 60–86; RESP 14–18; TEMP 36–37.4; O2SAT 93–97
[2024-10-27] MEDS: Levothyroxine 175 MCG TAB PO (05:30)
[2024-10-27] MEDS: Lactated Ringers 1,000 ML 150 ML IV ×3 (06:53→18:20)
[2024-10-27] MEDS: amLODIPine 10 MG TAB PO (07:34)
[2024-10-27] MEDS: Apixaban 5 MG TAB PO ×2 (07:34→20:12)
[2024-10-27] MEDS: Calcium 600mg/Vit D 200U TAB 1 TAB PO (07:34)
[2024-10-27] MEDS: Potassium Chloride 20 MEQ TABCR PO ×2 (07:35→11:37)
[2024-10-27] MEDS: Normal Saline Flush 10 ML SYR IVP ×2 (07:35→20:14)
[2024-10-27 09:23] LABS: Abs Immature Grans 0.04 10^3/uL (0.0-0.06); Absolute Basophil Count 0.07 10^3/uL (0.0-0.2); Absolute Monocyte Count 0.64 10^3/uL (0.1-0.8); Basophils % 0.6 %; Eosinophils % 1.2 %; HCT 38.7 % (36.0-46.0); HGB 12.8 g/dL (11.2-15.7); Immature Grans % 0.4 %; Lymphocytes % 16.1 %; MCH 30.2 pg (27.0-33.0); MCHC 33.1 % (32.0-36.0); MCV 91 fL (80-95); Monocytes % 5.7 %; Platelet Count 396 10^3/uL (130-400); RBC 4.24 10^6/uL (3.93-5.22); RDW-SD 49.9 fL; WBC 11.21 10^3/uL (4.4-10.8)
[2024-10-27 09:26] LABS: Absolute Eosinophil Count 0.13 10^3/uL (0.0-0.7); Absolute Neutrophil Count 8.52 10^3/uL (1.2-6.7)
[2024-10-27 09:40] LABS: ALT 16 U/L (14-59); AST 16 U/L (15-37); Albumin 3.2 g/dL (3.4-5.0); Alkaline Phosphatase 109 U/L (46-116); Anion Gap 9.2 mmol/L (3-11); BUN 79 mg/dL (7-18); Bilirubin, Total 0.7 mg/dL (0.2-1.0); CO2 32.8 mmol/L (21.0-32.0); CREATININE 1.6 mg/dL (0.55-1.02); Calcium 9.6 mg/dL (8.5-10.1); Chloride 96 mmol/L (98-107); Estimated GFR 32.81 (mL/min/1.73m2); Glucose 180 mg/dL (74-106); Sodium 138 mmol/L (136-145); Total Protein 8.1 g/dL (6.4-8.2)
[2024-10-27 09:47] LABS: Potassium 2.5 mmol/L (3.5-5.1)
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
--- NOTE | 2024-10-27 11:04 | PGE_ITS ---
Date of Service Date of service: 10/27/24 Time of Service: 11:04 Assessment and Plan Assessment and plan (1) Hyperlipidemia: Status: Chronic Assessment and plan: Continue with statin (2) Essential hypertension: Status: Chronic Assessment and plan: Will need optimization of the blood pressure medications as it appears she is a bit over diuresed. I will hold her Lasix as well as her HCTZ recheck her BUN and creatinine ratio in the a.m. 10/27/24 BP is 104/60 despite stopping lasix and hctz. Continue to monitor (3) Atrial fibrillation: Status: Chronic Assessment and plan: Patient is on Eliquis. Heart rate is below 100 patient on metoprolol succinate 200 mg p.o. daily 10/27/24 Rate controlled, cw eliquis (4) Heart failure with preserved ejection fraction: Status: Acute Assessment and plan: Her echocardiogram was fairly reassuring. I do believe she got a little bit over diuresed. Will need to balance her fluid intake versus her congestive heart failure but it does appear that at least according to her echo she can handle higher volume. (5) Hypotension due to hypovolemia: Status: Acute Assessment and plan: Resolving with IV fluids (6) Diabetes mellitus: Status: Chronic Assessment and plan: Home metformin due to renal dysfunction we will do sliding scale monitor for improvement (7) History of partial thyroidectomy: Status: Chronic Assessment and plan: Patient is on a fairly high dose of Synthroid we will check a TSH (8) MARKEL (acute kidney injury): Status: Acute Assessment and plan: Continue with IV fluids recheck labs in the a.m. (9) Hypomagnesemia: Assessment and plan: replace with oral supplementation (10) Hypokalemia: Assessment and plan: replace with oral supplementation. Stopped hctz as well Subjective Subjective Interval history since last seen: Pt seen and examined in her room this am. No new complaints. No S/S of chf Exam Narrative Exam Narrative: HEENT-normocephalic atraumatic mucous membranes moist oropharynx clear extract motions intact pupils equal round reactive to light Neck-no lymphadenopathy no JVD no thyromegaly Cardiovascular-irregularly irregular rhythm no murmur rubs or gallops heart rate under 100 Pulmonary-clear to auscultation bilaterally with good air exchange no accessory muscle use speaking in complete sentences Abdomen-soft nontender nondistended bowel sounds active x 4 quadrants Extremities-no sinus clubbing or edema bilaterally Neurologic-cranial nerves II through XII intact as tested reflexes in upper and lower extremity normal as tested nonfocal Psych-alert and oriented x 3 no apparent distress gives complete and linear history Objective Last Vital Signs Temp 36 C L 10/27/24 07:36 Pulse 60 10/27/24 07:36 Resp 16 10/27/24 07:36 BP 104/60 10/27/24 07:36 Pulse Ox 97 10/27/24 07:36 Laboratory Results - last 24 hr 10/26/24 10/26/24 10/26/24 14:21 15:30 16:40 WBC 13.90 H RBC 4.14 Hgb 12.5 Hct 38.0 MCV 92 MCH 30.2 MCHC 32.9 RDW 15.2 H Plt Count 422 H MPV 9.7 Immature Gran % 0.4 Neutrophils % 75.3 Lymphocytes % 15.9 Monocytes % 7.2 Eosinophils % 0.6 Basophils % 0.6 Nucleated RBC % 0.0 Absolute Neutrophils 10.47 H Absolute Lymphocytes 2.21 Absolute Monocytes 1.00 H Absolute Eosinophils 0.08 Absolute Basophils 0.08 Sodium 136 Potassium 3.1 L Chloride 95 L Carbon Dioxide 31.1 Anion Gap 9.9 BUN 95 H* Creatinine 2.4 H Est GFR (CKD-EPI 2020) 20.17 Glucose 114 H Calcium 9.3 Magnesium 1.3 L Total Bilirubin 0.7 AST 14 L ALT 15 Alkaline Phosphatase 107 Troponin I 16 18 NT-Pro-B Natriuret Pep 3519 H Total Protein 7.8 Albumin 3.2 L TSH 0.37 Urine Color Yellow Urine Clarity Clear Urine pH 5.5 Ur Specific [place] <= 1.005 Urine Protein Negative Urine Ketones Negative Urine Blood Negative Urine Nitrite Negative Urine Bilirubin Negative Urine Urobilinogen 0.2 Ur Leukocyte Esterase Small H Urine RBC Negative Urine WBC 5-10 Ur Epithelial Cells Many Urine Crystals Negative Urine Bacteria Rare Urine Casts 3-5 Hyaline Urine Mucus Moderate Ur Culture Indicated? No Urine Glucose Negative 10/26/24 10/27/24 17:12 09:10 WBC 11.21 H RBC 4.24 Hgb 12.8 Hct 38.7 MCV 91 MCH 30.2 MCHC 33.1 RDW 15.0 H Plt Count 396 MPV 10.0 Immature Gran % 0.4 Neutrophils % 76.0 Lymphocytes % 16.1 Monocytes % 5.7 Eosinophils % 1.2 Basophils % 0.6 Nucleated RBC % 0.0 Absolute Neutrophils 8.52 H Absolute Lymphocytes 1.80 Absolute Monocytes 0.64 Absolute Eosinophils 0.13 Absolute Basophils 0.07 Sodium 138 Potassium 2.5 L* Chloride 96 L Carbon Dioxide 32.8 H Anion Gap 9.2 BUN 79 H Creatinine 1.6 H Est GFR (CKD-EPI 2020) 32.81 Glucose 180 H Calcium 9.6 Magnesium Total Bilirubin 0.7 AST 16 ALT 16 Alkaline Phosphatase 109 Troponin I Cancelled NT-Pro-B Natriuret Pep Total Protein 8.1 Albumin 3.2 L TSH Urine Color Urine Clarity Urine pH Ur Specific [place] Urine Protein Urine Ketones Urine Blood Urine Nitrite Urine Bilirubin Urine Urobilinogen Ur Leukocyte Esterase Urine RBC Urine WBC Ur Epithelial Cells Urine Crystals Urine Bacteria Urine Casts Urine Mucus Ur Culture Indicated? Urine Glucose Time Spent with Patient Time Spent with Patient: 25-34 minutes Time was spent: preparing to see the patient(eg.review tests), obtaining and/or reviewing separately otained hiistory, ordering medications,tests, procedures, referring, communicating with other health spiritual care coordinator, indepentently interpreting results, counseling the patient and care coordination
[2024-10-27] MEDS: Acetaminophen 500 MG TAB 1000 MG PO (11:36)
[2024-10-27] MEDS: Insulin Aspart 300 UNITS/3 ML PEN SC ×2 (11:37→16:50)
--- NOTE | 2024-10-27 12:05 | IN_ITS ---
PT Notes Visit Reasons: MARKEL Physical Therapy Inpatient Initial Evaluation Date: 10/27/2024 Referring Doctor: Dr Stewart PT Orders: PT CONSULT: Pt Evaluation and treatment Precautions: standard, IV Access RUE Patient Profile/Admitting Diagnosis: Patient is 79-year-old female presented to the ED on 10/26/2024 and was admitted with MARKEL. Pt recent discharge from hospital on 10/14/24 with dx CHF. PMHX: Heart failure with preserved ejection fraction (Acute) Hypomagnesemia (Acute) Atrial fibrillation (Chronic) CHF (congestive heart failure) (Chronic) Acute hypoxic respiratory failure (Acute) Living accommodation issues (Chronic) Increased body mass index (BMI) (Chronic) Headache (Chronic) History of hysterectomy (Acute 09/21/15) History of partial thyroidectomy (Chronic) Status post LEEP (loop electrosurgical excision procedure) of cervix (Acute) Essential hypertension (Chronic 03/12/13) Peptic reflux disease (Chronic) Palpitations (Chronic) Low back pain (Chronic) Localized osteoarthrosis (Chronic 08/04/13) Hypothyroidism (Chronic 07/20/12) grave's s/p ablation and partial lobectomy Hyperlipidemia (Chronic 10/28/12) Diabetes mellitus (Chronic 12/23/12) Medical History Wound healing, delayed (04/14/17) HTN (hypertension) Depressive disorder History of total right hip replacement Surgical History History of bilateral ligation of fallopian tubes Ligation of fallopian tube Total replacement of hip (12/18/15) Right LeftLobectomy U/L THYROIDHysterectomy Colonoscopy - MAC (12/18/16) Cervical Conization/LEEP Social History/Home Situation: Patient now resides in her daughter's home with a ramp to enter. Patient independent ambulation within the home with rollator or FWW depending on the day. Patient receiving home health services including PT and nursing. Equipment Owned/DME:4WW, FWW, Crutches, cane Subjective: Pt reports she has a headache but agreeable to get out of bed after receiving medication Objective: [] General Observation: quiet female semireclined in bed IV infusing RUE. Mental Status: A+Ox4, pleasant , cooperative but easily overwhelmed. Pain: Reported to headache nursing aware and provided medication Vitals: 106/60, O2 sat 94% room air ROM: Right Upper Extremity: WFL Left Upper Extremity: WFL Right Lower Extremity: WFL all joints limited by soft tissue approximation Left Lower Extremity:WFL all joints limited by soft tissue approximation. Strength: BUE: 5/5 Right Lower Extremity: Hip flexion: 3 /5; hip abduction: 3 -/5; hip extension: 3- /5; knee extension: 3+ /5; knee flexion: 3- /5 ankle DF: 3 /5 ; ankle PF: 3/5 Left Lower Extremity: Hip flexion: 3 /5; hip abduction: 3 -/5; hip extension: 3- /5; knee extension: 3+/5; knee flexion: 3- /5 ankle DF: 3/5 ; ankle PF: 3 /5 Sensation:intact Bed Mobility/Transfers: [] Supine to sit mod A Sit to stand SBA cues for hand placement Stand to sit SBA cues for hand placement Bed to chair SBA with FWW Gait: SBA with FWW 18 feet x 2 quick odilia requiring cues to reduce speed for energy conservation. Increased forward flexed trunk and weightbearing through upper extremities Balance: [] Static Sitting: Normal Dynamic Sitting: Good Static Standing: Good Dynamic Standing:Fair plus Special Tests: [] Mobility Limitations Standardized Measure [] [facility] AM-PAC 6 clicks Basic Mobility Inpatient Short Form: [] Raw Score: 18 CMS Score: 46.58 % Informed Consent/Education: Patient instructed in purpose of PT consult,goals and POC Assessment: Patient is a 79 yo female who presents with clinical signs and symptoms consistent with current/admitting diagnoses that have resulted to mobility limitations, gait instability, generalized weakness, and impairment of motor control as demonstrated by the following impairment level findings: 1. Decreased strength to BLE major muscle groups 2. Impaired standing balance 3. impaired functional activity tolerance 4. impaired pacing/ energy conservation 5. Self-limiting behaviors Impairments are contributing to the following functional limitations: 1. Inability to safely ambulate without assistive device 2. Increase completion time for mobility ADL performance 3. Increased fall risk 4. decline in transfer skills 5. AM-PAC score Patient is assessed as a moderate complexity based on the following: History: 79-year-old female with impairment level findings, functional limitations, and past medical history as indicated above Examination: Demonstrable impairment in strength, balance, and mobility level with underlying impairments and functional limitations as documented above Presentation: evolving Decision Making: moderate Goals: 1. transfer with wheeled walker independent 2. ambulate with wheeled walker >50 feet x 2 with independent maintaining sats >90% 3. Demonstrate energy conservation and pacing maintaining saturations greater than 90% during functional tasks independently Plan of Care/Treatment Plan: 1-2x/day, 7 days/week x 1 week. Plan of care has been reviewed with the FASTENER TECHNOLOGIST providing the service under Physical Therapy direction. Initiate Physical Therapy intervention for strengthening, bed mobility, transfers, gait, stairs, balance training, use of assistive device. DISCHARGE RECOMMENDATIONS: SNF vs Home with HHPT TREATMENT CODE/TIME:98721, [id number], [id number] Thank you for the opportunity to participate in the care of this patient. Jane Campos PT [facility]
[2024-10-27] MEDS: Simvastatin 20 MG TAB PO (20:12)
[2024-10-27] MEDS: Magnesium Oxide 400 MG TAB PO (20:12)
[2024-10-27] MEDS: Potassium Chloride 20 MEQ TABCR 40 MEQ PO (20:13)
[2024-10-28] MEDS: Lactated Ringers 1,000 ML 150 ML IV ×3 (00:35→14:19)
[2024-10-28 03:00] VITALS: BP 94/79; PULSE 77; RESP 20; TEMP 36.2; O2SAT 93
[2024-10-28] MEDS: Levothyroxine 175 MCG TAB PO (05:59)
[2024-10-28 06:28] LABS: Abs Immature Grans 0.04 10^3/uL (0.0-0.06); Absolute Basophil Count 0.05 10^3/uL (0.0-0.2); Absolute Lymphocyte Count 2.28 10^3/uL (1.2-3.4); Absolute Monocyte Count 0.74 10^3/uL (0.1-0.8); Absolute Neutrophil Count 7.08 10^3/uL (1.2-6.7); Basophils % 0.5 %; Eosinophils % 1.9 %; HCT 34.3 % (36.0-46.0); HGB 11.3 g/dL (11.2-15.7); Immature Grans % 0.4 %; Lymphocytes % 21.9 %; MCH 30.3 pg (27.0-33.0); MCHC 32.9 % (32.0-36.0); MCV 92 fL (80-95); MPV 10.2 fL (8.0-11.0); Monocytes % 7.1 %; Neutrophils % 68.2 %; Platelet Count 368 10^3/uL (130-400); RBC 3.73 10^6/uL (3.93-5.22); RDW 15.1 % (11.7-14.6); WBC 10.39 10^3/uL (4.4-10.8)
[2024-10-28 07:16] LABS: ALT 15 U/L (14-59); AST 17 U/L (15-37); Albumin 2.7 g/dL (3.4-5.0); Alkaline Phosphatase 92 U/L (46-116); Anion Gap 3.7 mmol/L (3-11); BUN 45 mg/dL (7-18); Bilirubin, Total 0.4 mg/dL (0.2-1.0); CO2 33.3 mmol/L (21.0-32.0); Calcium 9.3 mg/dL (8.5-10.1); Chloride 103 mmol/L (98-107); Estimated GFR 57.66 (mL/min/1.73m2); Glucose 141 mg/dL (74-106); Potassium 3.2 mmol/L (3.5-5.1); Sodium 140 mmol/L (136-145); Total Protein 6.8 g/dL (6.4-8.2)
[2024-10-28 07:22] VITALS: BP 107/62; PULSE 79; RESP 12; TEMP 36.6; O2SAT 93
[2024-10-28] MEDS: Magnesium Oxide 400 MG TAB PO ×2 (08:26→20:07)
[2024-10-28] MEDS: Potassium Chloride 20 MEQ TABCR 40 MEQ PO ×2 (08:26→20:06)
[2024-10-28] MEDS: Apixaban 5 MG TAB PO ×2 (08:27→20:07)
[2024-10-28] MEDS: Calcium 600mg/Vit D 200U TAB 1 TAB PO (08:27)
[2024-10-28] MEDS: Insulin Aspart 300 UNITS/3 ML PEN SC ×2 (08:27→11:53)
[2024-10-28] MEDS: amLODIPine 10 MG TAB PO (08:27)
[2024-10-28] MEDS: Normal Saline Flush 10 ML SYR IVP ×2 (08:28→20:07)
[2024-10-28 08:53] VITALS: PULSE 155
--- NOTE | 2024-10-28 09:01 | PT.INTREAT ---
PT Notes Visit Reasons: MARKEL Inpatient Physical Therapy Treatment Note [facility] Date: 11/07/24 PRECAUTIONS:standard, IV Access RUE SUBJECTIVE: No c/o. Willing to go for a walk but requested to use bathroom first. OBJECTIVE: VITALS: ?HR increased to 170 with ambulation chair to toilet. Nursing present to check on monitor, HR did decrease to 104 once in sitting again. Therapeutic Activities (24361l[1]): Direct one-on-one instruction in dynamic activities to improve functional performance. ? BED MOBILITY/TRANSFERS? Sit-stand: CG of 1 with rolling walker x 1 from chair and x 1 from toilet ? Stand-sit: CG of 1 with rolling walker x 1 from chair and x 1 from toilet ? ? Ambulated 15 ft x 2 with rolling walker and CG of 1 ? ASSESSMENT:? Pt did well with sit to stand transfer and ambulation. However, pt's HR increased to 170 and she was SOB with ambulating back to chair. PLAN: Notify ICU prior to PT secondary to increased HR during rx session. TREATMENT CODE/TIME: 15 minutes DISCHARGE RECOMMENDATION: SNF vs Home with HHPT
--- NOTE | 2024-10-28 11:26 | W.PM.PROGNOT ---
Date of Service Date of service: 10/28/24 Time of Service: 11:26 Assessment and Plan Assessment and plan (1) Hyperlipidemia: Status: Chronic Assessment and plan: Continue with statin (2) Essential hypertension: Status: Chronic Assessment and plan: Will need optimization of the blood pressure medications as it appears she is a bit over diuresed. I will hold her Lasix as well as her HCTZ recheck her BUN and creatinine ratio in the a.m. 10/27/24 BP is 104/60 despite stopping lasix and hctz. Continue to monitor (3) Atrial fibrillation: Status: Chronic Assessment and plan: Patient is on Eliquis. Heart rate is below 100 patient on metoprolol succinate 200 mg p.o. daily 10/27/24 Rate controlled, cw eliquis 10/28/24 added backe metoprolol at 100mg bid 2/2 tachycardia with exertion. monitor, bp somewhat soft still (4) Heart failure with preserved ejection fraction: Status: Acute Assessment and plan: Her echocardiogram was fairly reassuring. I do believe she got a little bit over diuresed. Will need to balance her fluid intake versus her congestive heart failure but it does appear that at least according to her echo she can handle higher volume. 10/28/24 positive fluid balance (5) Hypotension due to hypovolemia: Status: Acute Assessment and plan: Resolving with IV fluids (6) Diabetes mellitus: Status: Chronic Assessment and plan: Home metformin due to renal dysfunction we will do sliding scale monitor for improvement (7) History of partial thyroidectomy: Status: Chronic Assessment and plan: Patient is on a fairly high dose of Synthroid we will check a TSH (8) MARKEL (acute kidney injury): Status: Acute Assessment and plan: Continue with IV fluids recheck labs in the a.m. (9) Hypomagnesemia: Assessment and plan: replace with oral supplementation (10) Hypokalemia: Assessment and plan: replace with oral supplementation. Stopped hctz as well Subjective Subjective Interval history since last seen: Pt going through an emotional trauma with her being very sick and possibly passing away soon. Exam Narrative Exam Narrative: HEENT-normocephalic atraumatic mucous membranes moist oropharynx clear extract motions intact pupils equal round reactive to light Neck-no lymphadenopathy no JVD no thyromegaly Cardiovascular-irregularly irregular rhythm no murmur rubs or gallops heart rate under 100 Pulmonary-clear to auscultation bilaterally with good air exchange no accessory muscle use speaking in complete sentences Abdomen-soft nontender nondistended bowel sounds active x 4 quadrants Extremities-no sinus clubbing or edema bilaterally Neurologic-cranial nerves II through XII intact as tested reflexes in upper and lower extremity normal as tested nonfocal Psych-labile but gives a linear history Objective Last Vital Signs Temp 36.6 C 10/28/24 07:22 Pulse 79 10/28/24 07:22 Resp 12 10/28/24 07:22 BP 107/62 10/28/24 07:22 Pulse Ox 93 10/28/24 07:22 Laboratory Results - last 24 hr 10/28/24 05:52 WBC 10.39 RBC 3.73 L Hgb 11.3 Hct 34.3 L MCV 92 MCH 30.3 MCHC 32.9 RDW 15.1 H Plt Count 368 MPV 10.2 Immature Gran % 0.4 Neutrophils % 68.2 Lymphocytes % 21.9 Monocytes % 7.1 Eosinophils % 1.9 Basophils % 0.5 Nucleated RBC % 0.0 Absolute Neutrophils 7.08 H Absolute Lymphocytes 2.28 Absolute Monocytes 0.74 Absolute Eosinophils 0.20 Absolute Basophils 0.05 Sodium 140 Potassium 3.2 L Chloride 103 Carbon Dioxide 33.3 H Anion Gap 3.7 BUN 45 H Creatinine 1.0 Est GFR (CKD-EPI 2020) 57.66 Glucose 141 H Calcium 9.3 Total Bilirubin 0.4 AST 17 ALT 15 Alkaline Phosphatase 92 Total Protein 6.8 Albumin 2.7 L Time Spent with Patient Time Spent with Patient: 25-34 minutes Time was spent: preparing to see the patient(eg.review tests), obtaining and/or reviewing separately otained hiistory, ordering medications,tests, procedures, referring, communicating with other health administrator health care facility, indepentently interpreting results, counseling the patient and care coordination
[2024-10-28 11:49] VITALS: BP 114/64; PULSE 94; RESP 12; TEMP 36; O2SAT 98
[2024-10-28 14:47] VITALS: BP 106/58; PULSE 84; RESP 16; TEMP 36; O2SAT 96
--- NOTE | 2024-10-28 15:43 | PT.INNT ---
PT Notes Visit Reasons: MARKEL Pt approached for PT in the afternoon. Nurse Uma reporting pt. remains tachycardic. rate increase >130 with using commode. PT to hold treatment until rate has reduced.
--- NOTE | 2024-10-28 16:11 | CMPROGNOTE_ITS ---
Date of service: 10/28/24 Time of Service: 16:11 Care Management Progress Note Progress Note Text Progress Note Text: Gisel was sitting up in the chair when CM met with her this afternoon. She was very pleasant, and we had a very nice conversation. Gisel had an episode today of tacchycardia. She said it was quite scary as she has never felt like that before. She is feeling better now, but she is glad that happened while she was still in the hospital. Gisel received some bad news from her daughter today. Gisel's , Deann, is in [facility] and is quite sick. She is worried that he will pass without her being able to see him. Despite their differences, he is still her whom she has been to for 27years. CM offered active listening and empathy while Gisel talked about her past and her concerns about her . Discharge Potential Discharge Needs: PCP F/U Appt Anticipated Barriers to Discharge: None Identified Patient/Family Education Needs: Review discharge instructions, discuss Ask Me Three Transportation: Private vehicle (Gisel may need an RCT ride, she is not sure if her daughter will be able to pick her up.) Plan: Anticipate that Gisel will discharge home in the next day or 2. She will have continuation of HH RN, OT and LEARNING DISABILITIES SPECIALIST and will have new PT. She will f/u with her PCP and continue per her plan of care. Gisel is unsure if she will have a private ride home, she may need RCT. CM will continue to follow. Social Determinants of Health Screening Social Determinants of health last assessed in clinic: 10/28/24 Will the Patient Participate in the Screening?: Yes Do you worry about having a steady place to live?: no Problems where you live: no known problems In the past 12 months, have you had to go without electric, gas, oil or water in your home?: no 1. Within the past 12 months, we worried whether our food would run out before we got money to buy more.: Don't know/refused 2. Within the past 12 months, the food we bought just didn't last and we didn't have money to get more.: Don't know/refused Has lack of transportation kept you from medical appointments or from doing things needed for daily living?: no Has anyone in your life made you feel unsafe or unsupported?: no How hard is it for you to pay for the very basics like food, housing, medical care, and heating? Would you say it is:: Not hard at all Do you want help finding or keeping work or a job?: I do not need or want help If for any reason you need help with day-to-day activities such as bathing, preparing meals, shopping, managing finances, etc., do you get the help you need?: I get all the help I need How often do you feel lonely or isolated from those around you?: Never Do you speak a language other than Puerto Rican at home?: Yes Does the patient want assistance with any of the above?: No Health Related Social Needs Health related social needs: education (Z55.6) Anticipated HH Services Anticipated HH Services at Discharge [facility] Needed, LEARNING DISABILITIES SPECIALIST, OT, PT and RN Anticipated Date of Discharge: 10/29/24. Following Provider: Mikel Polanco.
[2024-10-28 20:00] VITALS: BP 110/69; PULSE 75; RESP 17; TEMP 36.2; O2SAT 97
[2024-10-28] MEDS: Metoprolol 50 MG TAB 100 MG PO (20:06)
[2024-10-28] MEDS: Simvastatin 20 MG TAB PO (20:06)
[2024-10-29 00:37] VITALS: BP 106/61; PULSE 78; RESP 20; TEMP 36.6; O2SAT 95
[2024-10-29] MEDS: Lactated Ringers 1,000 ML 150 ML IV (02:15)
[2024-10-29] MEDS: Acetaminophen 500 MG TAB 1000 MG PO (06:13)
[2024-10-29] MEDS: Levothyroxine 175 MCG TAB PO (06:13)
[2024-10-29 07:01] VITALS: BP 127/86; PULSE 77; RESP 18; TEMP 36.3; O2SAT 94
[2024-10-29 07:29] LABS: Abs Immature Grans 0.02 10^3/uL (0.0-0.06); Absolute Basophil Count 0.05 10^3/uL (0.0-0.2); Absolute Eosinophil Count 0.19 10^3/uL (0.0-0.7); Absolute Lymphocyte Count 2.02 10^3/uL (1.2-3.4); Absolute Neutrophil Count 5.76 10^3/uL (1.2-6.7); Basophils % 0.6 %; Eosinophils % 2.1 %; HCT 31.9 % (36.0-46.0); HGB 10.3 g/dL (11.2-15.7); Immature Grans % 0.2 %; Lymphocytes % 22.6 %; MCH 29.9 pg (27.0-33.0); MCHC 32.3 % (32.0-36.0); MCV 93 fL (80-95); MPV 9.7 fL (8.0-11.0); Monocytes % 10.1 %; Neutrophils % 64.4 %; Platelet Count 322 10^3/uL (130-400); RBC 3.45 10^6/uL (3.93-5.22); RDW 15.3 % (11.7-14.6); RDW-SD 52.2 fL; WBC 8.94 10^3/uL (4.4-10.8)
[2024-10-29] MEDS: Metoprolol 50 MG TAB 100 MG PO (07:33)
[2024-10-29] MEDS: Calcium 600mg/Vit D 200U TAB 1 TAB PO (07:33)
[2024-10-29] MEDS: amLODIPine 10 MG TAB PO (07:34)
[2024-10-29] MEDS: Normal Saline Flush 10 ML SYR IVP (07:34)
[2024-10-29] MEDS: Apixaban 5 MG TAB PO (07:34)
[2024-10-29] MEDS: Potassium Chloride 20 MEQ TABCR 40 MEQ PO (07:34)
[2024-10-29] MEDS: Magnesium Oxide 400 MG TAB PO (07:34)
[2024-10-29 07:51] LABS: ALT 17 U/L (14-59); AST 16 U/L (15-37); Albumin 2.6 g/dL (3.4-5.0); Alkaline Phosphatase 84 U/L (46-116); Anion Gap 5.4 mmol/L (3-11); BUN 23 mg/dL (7-18); Bilirubin, Total 0.5 mg/dL (0.2-1.0); CO2 32.6 mmol/L (21.0-32.0); CREATININE 0.9 mg/dL (0.55-1.02); Calcium 9.1 mg/dL (8.5-10.1); Chloride 103 mmol/L (98-107); Estimated GFR 65.44 (mL/min/1.73m2); Glucose 137 mg/dL (74-106); Potassium 3.5 mmol/L (3.5-5.1); Sodium 141 mmol/L (136-145); Total Protein 6.6 g/dL (6.4-8.2)
[2024-10-29 11:25] VITALS: PULSE 72; RESP 17; TEMP 36.3; O2SAT 93
--- NOTE | 2024-10-29 11:56 | PT.INTREAT ---
PT Notes Visit Reasons: MARKEL Inpatient Physical Therapy Treatment Note [facility] Date: 10/29/2024 PRECAUTIONS:standard, IV Access RUE SUBJECTIVE: No c/o. Willing to go get out of bed to chair agreeable to walk after lunch OBJECTIVE: VITALS: ?Pt no longer on telemetry HR 76 Pt noted SOB with functional dynamic tasks Therapeutic Activities (85021g[1]): Direct one-on-one instruction in dynamic activities to improve functional performance. ? BED MOBILITY/TRANSFERS? semireclined to sit at EOB supervision +SHEPARD? Sit-stand: SBA of 1 cues to push up from surfaces with rolling walker from bed x 3 from chair x 2? Stand-sit: SBA of 1 with rolling walker cues to reach back all surfaces ? ? Ambulated 15 ft x 2 with rolling walker and SBA of 1 ? ASSESSMENT:? Pt no longer on telemetry . She noted to have audible expiratory wheezing during functional dynamic tasks in sit and stand including item retrieval from below knee height to over head. Pt with no LOB during standing dynamic tasks within [place]. Pt able to perfom all personal hygiene in stand position without LOB. noted dyspnea which resolves with seated rest. PLAN: Cont POC next session with goal to walk outside room to simulate distance she needs to wlak within her home to get to from the bathroom. TREATMENT CODE/TIME: 45919/ [id number] DISCHARGE RECOMMENDATION: Home with HHPT
[2024-10-29] MEDS: Insulin Aspart 300 UNITS/3 ML PEN SC (11:58)
--- NOTE | 2024-10-29 12:46 | PDOC.CMPRO ---
Date of service: 10/29/24 Time of Service: 12:46 Care Management Progress Note Progress Note Text Progress Note Text: Gisel was sitting up in the bedside chair when CM met with her today. She is feeling ok and would like to go home. She is not sure if that will happen today or not. Discharge Potential Discharge Needs: PCP F/U Appt Anticipated Barriers to Discharge: None Identified Patient/Family Education Needs: Review discharge instructions, discuss Ask Me Three Transportation: Other (private ride vs RCT) Plan: Anticipate that Gisel will discharge home once medically stable. She will have continuation of HH RN, OT and GROUND SUPPORT EQUIPMENT FITTER and will have new PT. She will f/u with her PCP and continue per her plan of care. Gisel is unsure if she will have a private ride home, she may need RCT. CM will continue to follow. Social Determinants of Health Screening Social Determinants of health last assessed in clinic: 10/28/24 Will the Patient Participate in the Screening?: Yes Do you worry about having a steady place to live?: no Problems where you live: no known problems In the past 12 months, have you had to go without electric, gas, oil or water in your home?: no Has lack of transportation kept you from medical appointments or from doing things needed for daily living?: no Has anyone in your life made you feel unsafe or unsupported?: no How hard is it for you to pay for the very basics like food, housing, medical care, and heating? Would you say it is:: Not hard at all Do you want help finding or keeping work or a job?: I do not need or want help If for any reason you need help with day-to-day activities such as bathing, preparing meals, shopping, managing finances, etc., do you get the help you need?: I get all the help I need How often do you feel lonely or isolated from those around you?: Never Do you speak a language other than Cameroonian at home?: Yes Does the patient want assistance with any of the above?: No Health Related Social Needs Health related social needs: education (Z55.6) Anticipated HH Services Anticipated HH Services at Discharge [facility] Needed, GROUND SUPPORT EQUIPMENT FITTER, OT, PT and RN Following Provider: Mikel Polanco.
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
--- NOTE | 2024-10-29 14:17 | PDOC.CMDIS ---
Date of service: 10/29/24 Time of Service: 14:17 LACE Index Scoring Tool Questions: Length of Stay (in days): 3 Was the patient admitted via the E.D.?: Yes Comorbidities: Diabetes w/o Complication and Chronic Pulmonary Disease E.D. Visits: 2 Answers: Total Score: 11 Risk of Readmission: High Risk Care Management Discharge Plan Reason for Hospitalization: MARKEL Discharge Plan: Gisel is discharged home this afternoon with a continuation of her HH services of RN, PT, OT and TRUCK LEASING MANAGER. She will f/u with her PCP and continue per her plan of care. Gisel will transport home with her daughter. Patient/Family Education Needs: Review of discharge instructions, activity, limitations and discuss Ask me 3. Services Needed at Discharge: Home Health Care Services SDOH Health Related Social Needs: Health related social needs food insecurity Health related social needs details provider aware
--- NOTE | 2024-10-29 14:18 | PDOC.HHF2F_ITS ---
Home Health Referral Home Health Orders Medical diagnosis necessitation home health referral: acute kidney injury, dehydration, history of heart failure, afib, diabetes mellitus Registered Nurse: Check all that apply Instruct on new or changed medication(s)/assess compliance: Ordered Assess for exacerbation of medical condition, instruct patient/caregivers on signs and symptoms to report for early detection: Ordered Physical Therapist: Check all that apply Increase strength & endurance for safe mobility at home: Ordered To design/establish home maintenance program: Ordered Home safety evaluation and teaching/gait training including stair management (if applicable): Ordered Occupational Therapist: Evaluate and treat for patient unable to perform ADL/IADL/self-care: Ordered Sales Driver: Assist with community resources: Ordered Assist with terminal system operator care planning: Ordered Home Bound Status Requires the aid of supportive device (check all that apply): Walker Describe why leaving home would require a considerable and taxing effort: Requires frequent rest periods Encounter Date and Reason: I certify that a FTF encounter for this patient was performed on October 29, 2024 and that such encounter was related to the primary reason the patient requires home health services. The encounter was conducted in the following manner: * By me as the certifying physician, HYDROGEN PLANT OPERATIONS MANAGER, PA or * By an inpatient physician, HYDROGEN PLANT OPERATIONS MANAGER or PA during an inpatient stay who communicated findings to me, Certification And Authentication I certify that I composed the above information based on my clinical judgment relating to this patient's medical condition and, if applicable, clinical findings communicated to me by the NPP or inpatient physician who performed the FTF encounter. Name of Provider that will be monitoring home health services: Mikel Polanco
== END 2024-10-29 14:32 | disposition home health service (06) | DRG 683 ==
LOC: ER 17:52 → MS 17:54
PROVIDERS: Admitting Provider Hospitalist; Emergency Provider Emergency Medicine; PCP Nurse Practitioner Family; Responsible Provider Nurse Practitioner Acute Care; Visit Provider Hospitalist
DX: N17.9 Acute kidney failure, unspecified; E83.42 Hypomagnesemia; E87.6 Hypokalemia; Z79.899 Other long term (current) drug therapy; E89.0 Postprocedural hypothyroidism; Z79.01 Long term (current) use of anticoagulants; I11.0 Hypertensive heart disease with heart failure; E78.5 Hyperlipidemia, unspecified; Z79.84 Long term (current) use of oral hypoglycemic drugs; E11.9 Type 2 diabetes mellitus without complications; I50.32 Chronic diastolic (congestive) heart failure; I95.89 Other hypotension; E86.1 Hypovolemia; R51.9 Headache, unspecified; K21.9 Gastro-esophageal reflux disease without esophagitis; M54.50 Low back pain, unspecified; F32.A Depression, unspecified; Z96.643 Presence of artificial hip joint, bilateral
CPT/HCPCS: 00123; 36415; 80053; 93005; 93308; 96361; 96365; 96366; 97112; 97161; 97530; 99291; 71046; 81003; 81015; 83735; 83880; 84443; 84484; 85025; 93010; 99222; 99232; 99239; J1815; J3475

== ENCOUNTER 2024-11-23 16:38 | Outpatient (REF) | payer MEDICARE, MEDICAID, SELFPAY ==
[2024-11-23 13:34] LABS: ALT 19 U/L (14-59); AST 16 U/L (15-37); Albumin 3.1 g/dL (3.4-5.0); Alkaline Phosphatase 94 U/L (46-116); Anion Gap 8.8 mmol/L (3-11); BUN 27 mg/dL (7-18); Bilirubin, Total 0.4 mg/dL (0.2-1.0); CO2 30.2 mmol/L (21.0-32.0); Calcium 9.4 mg/dL (8.5-10.1); Chloride 99 mmol/L (98-107); Estimated GFR 57.66 (mL/min/1.73m2); Glucose 108 mg/dL (74-106); Magnesium 1.6 mg/dL (1.8-2.4); Potassium 4.1 mmol/L (3.5-5.1); Sodium 138 mmol/L (136-145); Total Protein 7.1 g/dL (6.4-8.2)
== END 2024-11-23 16:39 | disposition home or self-care (01) ==
LOC: LBN 16:38
PROVIDERS: PCP Nurse Practitioner Family; Visit Provider Nurse Practitioner Family
DX: R00.2 Palpitations (principal); E11.620 Type 2 diabetes mellitus with diabetic dermatitis; I50.32 Chronic diastolic (congestive) heart failure
CPT/HCPCS: 80053; 83735

== ENCOUNTER 2024-12-10 11:16 | Outpatient (CLI) | payer MEDICARE, MEDICAID, SELFPAY ==
--- NOTE | 2024-12-10 11:15 | RT.EKG_ITS ---
APPROVED REPORT Exam: Resting ECG Reason for Exam: baseline Patient Location: O HR:71 bpm ECG Measurements Heart Rate 71 AXIS ID [id number] P [id number] QRSd 116 QRS -54 QT 370 T 148 QTc 403 Conclusion Atrial fibrillation...? atrial activity Incomplete left bundle branch block...QRSd>110mS, terminal axis(-90,-1)
== END 2024-12-10 11:17 | disposition home or self-care (01) ==
LOC: DI.CARD 11:18
PROVIDERS: PCP Nurse Practitioner Family; Referring Provider Nurse Practitioner Family; Visit Provider Internal Medicine Cardiovascular Disease
DX: I48.91 Unspecified atrial fibrillation (principal); I50.33 Acute on chronic diastolic (congestive) heart failure
CPT/HCPCS: 93010

== ENCOUNTER → 2024-12-10 11:16 | Outpatient (BNVA) | payer MEDICARE, MEDICAID, SELFPAY | PROVIDERS: PCP Nurse Practitioner Family; Referring Provider Nurse Practitioner Family; Visit Provider Internal Medicine Cardiovascular Disease | DX: I50.33 Acute on chronic diastolic (congestive) heart failure (principal); I48.91 Unspecified atrial fibrillation; Z79.01 Long term (current) use of anticoagulants | CPT/HCPCS: 99214; 93005 ==

== ENCOUNTER 2025-03-03 11:47 | Outpatient (CLI) | payer MEDICARE, MEDICAID, SELFPAY ==
[2025-03-03 15:46] LABS: HCT 35.2 % (36.0-46.0); HGB 11.0 g/dL (11.2-15.7); MCH 29.2 pg (27.0-33.0); MCHC 31.3 % (32.0-36.0); MCV 93 fL (80-95); MPV 9.8 fL (8.0-11.0); Platelet Count 422 10^3/uL (130-400); RBC 3.77 10^6/uL (3.93-5.22); RDW 16.7 % (11.7-14.6); RDW-SD 56.8 fL; WBC 8.91 10^3/uL (4.4-10.8)
[2025-03-03 16:12] LABS: ALT 17 U/L (14-59); AST 17 U/L (15-37); Albumin 3.1 g/dL (3.4-5.0); Alkaline Phosphatase 99 U/L (46-116); Anion Gap 10.4 mmol/L (3-11); BUN 37 mg/dL (7-18); Bilirubin, Total 0.5 mg/dL (0.2-1.0); CO2 30.6 mmol/L (21.0-32.0); Calcium 9.5 mg/dL (8.5-10.1); Calculated LDL 70 mg/dL (<100); Chloride 99 mmol/L (98-107); Cholesterol 124 mg/dL (<200); Estimated GFR 46.33 (mL/min/1.73m2); Glucose 115 mg/dL (74-106); HDL Cholesterol 43 mg/dL (>or=50); Potassium 3.4 mmol/L (3.5-5.1); Sodium 140 mmol/L (136-145); Total Protein 8.2 g/dL (6.4-8.2); Triglyceride 56 mg/dL (<150)
[2025-03-03 16:24] LABS: Hemoglobin A1C 5.9 % (<5.7)
== END 2025-03-03 11:48 | disposition home or self-care (01) ==
LOC: LOS 11:47
PROVIDERS: PCP Nurse Practitioner Family; Visit Provider Nurse Practitioner Family
DX: E11.620 Type 2 diabetes mellitus with diabetic dermatitis (principal); Z86.2 Personal history of diseases of the blood and blood-forming organs and certain disorders involving the immune mechanism; C54.1 Malignant neoplasm of endometrium
CPT/HCPCS: 36415; 80053; 80061; 85027; 83036

== ENCOUNTER 2025-04-14 02:36 | Inpatient (IN) | payer MEDICARE, MEDICAID, SELFPAY ==
[2025-04-14] VITALS (35 sets, daily range): BP systolic 79–160; BP diastolic 35–90; PULSE 70–105; RESP 17–27; TEMP 37–40.4; O2SAT 82–96
--- NOTE | 2025-04-14 02:15 | RT.EKG_ITS ---
APPROVED REPORT Exam: Resting ECG Reason for Exam: weakness Patient Location: E HR:81 bpm ECG Measurements Heart Rate 81 AXIS CO [id number] P [id number] QRSd 135 QRS -79 QT 400 T 106 QTc 466 Conclusion Atrial fibrillation...V-rate 63-106, irreg A-activity Left bundle branch block...QRSd>120, broad/notched R Physician: No STEMI
[2025-04-14 03:02] LABS: BE (Venous) 8 mmol/L (-2-3); HCO3 (Venous) 32 mmol/L (23-28); O2 Sat (Venous) 48 %; TCO2 (Venous) 29 mmol/L (24-29); pCO2 (Venous) 46 mmHg (41-51); pO2 (Venous) 27 mmHg
[2025-04-14 03:06] LABS: Abs Immature Grans 0.03 10^3/uL (0.0-0.06); HCT 33.3 % (36.0-46.0); HGB 10.7 g/dL (11.2-15.7); Immature Grans % 0.4 %; MCH 28.3 pg (27.0-33.0); MCHC 32.1 % (32.0-36.0); MCV 88 fL (80-95); MPV 9.7 fL (8.0-11.0); Platelet Count 326 10^3/uL (130-400); RBC 3.78 10^6/uL (3.93-5.22); RDW 16.0 % (11.7-14.6); RDW-SD 51.7 fL; WBC 6.76 10^3/uL (4.4-10.8)
[2025-04-14] MEDS: ACETAMINOPHEN 1,000 MG/100 ML BAG 400 MG IVPB (03:08)
[2025-04-14 03:24] LABS: Troponin I 13 ng/L (<35)
[2025-04-14 03:31] LABS: ALT 12 U/L (10-49); AST 20 U/L (<34); Albumin 4.2 g/dL (3.2-5.0); Alkaline Phosphatase 93 U/L (46-116); Anion Gap 10.3 mmol/L (3-11); BUN 36 mg/dL (9-23); Bilirubin, Total 0.50 mg/dL (0.2-1.2); CO2 29.7 mmol/L (20.0-31.0); Calcium 9.5 mg/dL (8.3-10.6); Chloride 101 mmol/L (98-107); Glucose 135 mg/dL (74-106); Potassium 2.9 mmol/L (3.5-5.1); Sodium 141 mmol/L (136-145); Total Protein 7.7 g/dL (5.7-8.2)
--- NOTE | 2025-04-14 03:32 | DI.RAD_ITS ---
Exam(s) XR PORTABLE CHEST AP EXAM: XR PORTABLE CHEST AP CLINICAL HISTORY: cough, SOB< suspect pneumonia vs chf. TECHNIQUE: 2D digital imaging was performed. COMPARISON: CR XR CHEST 2V PA LATERAL from 10/26/2024 FINDINGS: Single AP portable view. Mild cardiomegaly again noted. Mediastinum unremarkable although there is again noted is somewhat tortuous descending thoracic aorta. Lungs are clear. No infiltrates nor obvious pleural effusions. IMPRESSION: No acute pulmonary findings on this single AP portable view of the chest.Mild cardiomegaly. No pulmonary edema. Recommend follow-up PA and lateral views when clinically possible. DATA REPOSITORY: RADIATION DOSE DELIVERED:
[2025-04-14 03:33] LABS: Procalcitonin < 0.10 ng/mL
[2025-04-14] MEDS: POTASSIUM CHLORIDE 20 MEQ/100 ML BAG 50 MEQ IV_INF (03:46)
[2025-04-14] MEDS: Potassium Chloride 20 MEQ TABCR 40 MEQ PO (03:47)
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
[2025-04-14 03:55] LABS: Troponin I 14 ng/L (<35)
[2025-04-14] MEDS: cefTRIAXone 2 GM/50 ML BAG IVPB (04:26)
[2025-04-14] MEDS: Furosemide 40 MG/4 ML VIAL IVP (04:26)
[2025-04-14 04:42] LABS: COVID-19 PCR Negative (Negative); RSV PCR Negative (Negative)
--- NOTE | 2025-04-14 04:56 | DI.VRAD_ITS ---
PROCEDURE INFORMATION: Exam: XR Chest Exam date and time: 04/14/2025 3:24 AM Age: 79 years old Clinical indication: Cough and shortness of breath; Cough, sob< suspect pneumonia vs chf TECHNIQUE: Imaging protocol: Radiologic exam of the chest. Views: 1 view. COMPARISON: CR XR CHEST 2V PA LATERAL 10/26/2024 5:12 PM FINDINGS: Lungs: Mildly enlarged central pulmonary vasculature. No focal airspace opacities. Pleural spaces: Unremarkable. No pleural effusion. No pneumothorax. Heart/Mediastinum: The cardiac silhouette is mildly enlarged. There is mildly prominent contour of the main pulmonary artery, suggesting underlying pulmonary arterial hypertension. Vasculature: Calcified atherosclerosis of the thoracic aorta. Bones/joints: Unremarkable. IMPRESSION: Mildly enlarged cardiac silhouette. Mild pulmonary vascular congestion. Dictated and Authenticated by: Juventino Rust MD. Orderin Gabriela Emery MD
[2025-04-14] MEDS: DOXYCYCLINE 100 MG in Normal Saline 100 ML IVPB (05:02)
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
[2025-04-14 06:18] LABS: Troponin I 14 ng/L (<35)
--- NOTE | 2025-04-14 07:52 | W.PC.ACHO ---
Registration Status: ADM IN Primary Language: Preferred Language: Romanian ED Information & Data Chief Complaint GenMedical 04/14/25 03:58 Triage Note Pt states that she attempted 04/14/25 02:30 to get up out of bed tonight and could not. Pt has been not feeling well for last couple days. Hx CHF Medical / Surgical History (Last Reviewed 01/21/25 @ 15:31 by Mikel Polanco NP) MARKEL (acute kidney injury) Hypotension due to hypovolemia Hypokalemia Hypotension Hypomagnesemia CHF (congestive heart failure) Wound healing, delayed (04/14/17) HTN (hypertension) Depressive disorder History of total right hip replacement (Last Reviewed 01/21/25 @ 15:31 by Mikel Polanco NP) History of bilateral ligation of fallopian tubes Ligation of fallopian tube Total replacement of hip (12/18/15) Lobectomy Hysterectomy Colonoscopy - MAC (12/18/16) Cervical Conization/LEEP Most Recent Vital Signs Temperature 37.4 C 04/14/25 04:57 Temperature Source Oral 04/14/25 04:57 Pulse 80 04/14/25 04:31 Pulse 78 04/14/25 04:31 Respiratory Rate 19 04/14/25 04:31 Blood Pressure 118/70 04/14/25 06:02 Blood Pressure Mean 86 04/14/25 06:02 Blood Pressure Position Supine 04/14/25 02:39 Pulse Oximetry 94 04/14/25 04:31 Oxygen Delivery Method Nasal Cannula 04/14/25 02:40 Oxygen Flow Rate 2 04/14/25 02:40 Pain Level 0 04/14/25 02:39 Comment BP rechecked due to low reading on monitor. 04/14/25 04:57 Comment MD aware of Pt's Hypotension 04/14/25 04:31 Allergies zolpidem tartrate (From Ambien) Adverse Reaction (Severe, Verified 03/03/25 11:03) Psychosis Precautions Isolation Standard precaution 04/14/25 02:39 IV IV Catheter Type [Right Peripheral IV Antecubital] IV Catheter Gauge [Right 18 Antecubital] Diet Orders Category Date Time Status Diabetes Consistent CHO [DIET] Nutrition 04/14/25 Breakfast Active Diagnostics 04/14/25 04/14/25 04/14/25 Range/Units 05:55 05:35 04:02 WBC Pending (4.4-10.8) 10^3/uL RBC Pending (3.93-5.22) 10^6/uL Hgb Pending (11.2-15.7) g/dL Hct Pending (36.0-46.0) % MCV Pending (80-95) fL MCH Pending (27.0-33.0) pg MCHC Pending (32.0-36.0) % RDW Pending (11.7-14.6) % Plt Count Pending (130-400) 10^3/uL MPV Pending (8.0-11.0) fL Immature Gran % Pending % Neutrophils % Pending % Lymphocytes % Pending % Monocytes % Pending % Eosinophils % Pending % Basophils % Pending % Nucleated RBC % (0.0-0.3) % Absolute Neutrophils Pending (1.2-6.7) 10^3/uL Absolute Lymphocytes Pending (1.2-3.4) 10^3/uL Absolute Monocytes Pending (0.1-0.8) 10^3/uL Absolute Eosinophils Pending (0.0-0.7) 10^3/uL Absolute Basophils Pending (0.0-0.2) 10^3/uL VBG pH (7.31-7.41) VBG pCO2 (41-51) mmHg VBG pO2 mmHg VBG HCO3 (23-28) mmol/L VBG Total CO2 (24-29) mmol/L VBG O2 Saturation % VBG Base Excess (-2-3) mmol/L VBG Lactate (<or=2.0) mmol/L Sodium Pending (136-145) mmol/L Potassium Pending (3.5-5.1) mmol/L Chloride Pending (98-107) mmol/L Carbon Dioxide Pending (20.0-31.0) mmol/L Anion Gap Pending (3-11) mmol/L BUN Pending (9-23) mg/dL Creatinine Pending (0.55-1.02) mg/dL Est GFR (CKD-EPI 2020) Pending (mL/min/1.73m2) Glucose Pending (74-106) mg/dL Calcium Pending (8.3-10.6) mg/dL Total Bilirubin Pending (0.2-1.2) mg/dL AST Pending (<34) U/L ALT Pending (10-49) U/L Alkaline Phosphatase Pending (46-116) U/L Troponin I 14 (<35) ng/L NT-Pro-B Natriuret Pep (<300) pg/mL Total Protein Pending (5.7-8.2) g/dL Albumin Pending (3.2-5.0) g/dL Procalcitonin ng/mL COVID-19 Source Nasopharynx SARS-CoV-2 (PCR) Negative (Negative) Influenza Type A (PCR) Positive A (Negative) Influenza Type B (PCR) Negative (Negative) RSV (PCR) Negative (Negative) 04/14/25 04/14/25 Range/Units 03:35 02:40 WBC 6.76 (4.4-10.8) 10^3/uL RBC 3.78 L (3.93-5.22) 10^6/uL Hgb 10.7 L (11.2-15.7) g/dL Hct 33.3 L (36.0-46.0) % MCV 88 (80-95) fL MCH 28.3 (27.0-33.0) pg MCHC 32.1 (32.0-36.0) % RDW 16.0 H (11.7-14.6) % Plt Count 326 (130-400) 10^3/uL MPV 9.7 (8.0-11.0) fL Immature Gran % 0.4 % Neutrophils % 77.3 % Lymphocytes % 10.1 % Monocytes % 11.2 % Eosinophils % 0.7 % Basophils % 0.3 % Nucleated RBC % 0.0 (0.0-0.3) % Absolute Neutrophils 5.22 (1.2-6.7) 10^3/uL Absolute Lymphocytes 0.68 L (1.2-3.4) 10^3/uL Absolute Monocytes 0.76 (0.1-0.8) 10^3/uL Absolute Eosinophils 0.05 (0.0-0.7) 10^3/uL Absolute Basophils 0.02 (0.0-0.2) 10^3/uL VBG pH 7.45 H (7.31-7.41) VBG pCO2 46 (41-51) mmHg VBG pO2 27 mmHg VBG HCO3 32 H (23-28) mmol/L VBG Total CO2 29 (24-29) mmol/L VBG O2 Saturation 48 % VBG Base Excess 8 H (-2-3) mmol/L VBG Lactate 1.3 (<or=2.0) mmol/L Sodium 141 (136-145) mmol/L Potassium 2.9 L (3.5-5.1) mmol/L Chloride 101 (98-107) mmol/L Carbon Dioxide 29.7 (20.0-31.0) mmol/L Anion Gap 10.3 (3-11) mmol/L BUN 36 H (9-23) mg/dL Creatinine 1.19 H (0.55-1.02) mg/dL Est GFR (CKD-EPI 2020) 43.78 (mL/min/1.73m2) Glucose 135 H (74-106) mg/dL Calcium 9.5 (8.3-10.6) mg/dL Total Bilirubin 0.50 (0.2-1.2) mg/dL AST 20 (<34) U/L ALT 12 (10-49) U/L Alkaline Phosphatase 93 (46-116) U/L Troponin I 14 13 (<35) ng/L NT-Pro-B Natriuret Pep 4465 H (<300) pg/mL Total Protein 7.7 (5.7-8.2) g/dL Albumin 4.2 (3.2-5.0) g/dL Procalcitonin < 0.10 ng/mL COVID-19 Source SARS-CoV-2 (PCR) (Negative) Influenza Type A (PCR) (Negative) Influenza Type B (PCR) (Negative) RSV (PCR) (Negative) 04/14/25 03:20 Blood Culture - Pending Blood 04/14/25 03:16 Blood Culture - Pending Blood Intake and Output - 24 Hour Total 04/14/25 02:18 thru 04/14/25 06:12 Intake Total 350 Balance 350 Weight 111.13 kg Intake: IV 350 Falls Risk Assessment History of Falls Previous History 04/14/25 02:39 Contributing Factors Unstable 04/14/25 02:39 Ambulatory Aids Uses ambulatory device + 04/14/25 02:39 Tubes/Lines None 04/14/25 02:39 Gait Evaluation W/any additional score 04/14/25 02:39 Cognition No cognitive impairment 04/14/25 02:39 Fall Total Score 68 04/14/25 02:39 Level of Risk High Risk 04/14/25 02:39 Problems (Last Reviewed 01/21/25 @ 15:31 by Mikel Polanco NP) Pneumonia (Acute) Hypoxemia (Acute) Atrial fibrillation (Chronic) Diabetes mellitus (Chronic 12/23/12) Attestation Statement: By documenting the first initial, last name, and credentials of the reporting nurse below, both parties acknowledge that all relevant information regarding the patient handoff has been communicated, and that all questions have been addressed to ensure continuity and safety of care. Additional Patient Information/Comments: Pt reports not feeling well with cough and fatigue for a few days. This time, unable to get oob, EMS. 3 weeks of cough. Flu A positive, LS Rhonchi and crackles. Has not voided. Given in ER: 40meQ po KCl, 20 meQ IV KCl, 20mg IVP lasix, 1 gram IV acetaminophen, 2 gram ceftriaxone, 100mg doxycycline, #18 BANNER sent Report Received From: Ion Maxwell RN 04/14/25 @ [id number]
[2025-04-14] MEDS: Normal Saline Flush 10 ML SYR IVP ×3 (07:54→20:18)
[2025-04-14] MEDS: Oseltamivir 75 MG CAP PO (07:54)
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
[2025-04-14 08:14] LABS: Abs Immature Grans 0.02 10^3/uL (0.0-0.06); HCT 32.7 % (36.0-46.0); HGB 10.4 g/dL (11.2-15.7); Immature Grans % 0.4 %; MCH 28.2 pg (27.0-33.0); MCHC 31.8 % (32.0-36.0); MCV 89 fL (80-95); MPV 9.3 fL (8.0-11.0); Platelet Count 297 10^3/uL (130-400); RBC 3.69 10^6/uL (3.93-5.22); RDW 16.1 % (11.7-14.6); RDW-SD 52.3 fL; WBC 5.42 10^3/uL (4.4-10.8)
[2025-04-14] MEDS: Acetaminophen 325 MG TAB PO ×2 (08:19→14:37)
[2025-04-14 08:52] LABS: ALT 11 U/L (10-49); AST 22 U/L (<34); Albumin 4.1 g/dL (3.2-5.0); Alkaline Phosphatase 88 U/L (46-116); Anion Gap 7.8 mmol/L (3-11); BUN 34 mg/dL (9-23); Bilirubin, Total 0.40 mg/dL (0.2-1.2); CO2 31.2 mmol/L (20.0-31.0); Calcium 9.3 mg/dL (8.3-10.6); Chloride 101 mmol/L (98-107); Glucose 112 mg/dL (74-106); Potassium 3.5 mmol/L (3.5-5.1); Sodium 140 mmol/L (136-145); Total Protein 7.5 g/dL (5.7-8.2)
[2025-04-14] MEDS: Metoprolol CR 100 MG TABCR 200 MG PO (08:58)
[2025-04-14] MEDS: metFORMIN 500 MG TAB 1000 MG PO ×2 (08:58→16:46)
[2025-04-14] MEDS: Calcium 600mg/Vit D 200U TAB 1 TAB PO (08:58)
[2025-04-14] MEDS: Multivitamin w/Minerals TAB 1 TAB PO (08:58)
[2025-04-14] MEDS: Apixaban 5 MG TAB PO ×2 (08:59→20:18)
[2025-04-14] MEDS: Levothyroxine 175 MCG TAB PO (08:59)
[2025-04-14] MEDS: Magnesium Chloride 64 MG TABCR PO ×2 (08:59→20:18)
[2025-04-14] MEDS: Aspirin 81 MG CHEW PO (08:59)
[2025-04-14] MEDS: AZITHROMYCIN 500 MG in Normal Saline 250 ML 250 MG IVPB (08:59)
--- NOTE | 2025-04-14 09:42 | W.PM.PROGNOT ---
Date of Service Date of service: 04/14/25 Time of Service: 17:43 Assessment and Plan Assessment and plan (1) Sepsis: Status: Acute Assessment and plan: Resolving On admission Tachycardia > 100 and fever > 38 meeting sepsis criteria with respiratory source with positive influenza Blood Cx negative at 24 H (2) Acute hypoxic respiratory failure: Status: Resolved Assessment and plan: As below Not on chronic oxygen at home- and on presentation to the ED, the patient was hypoxic in the mid to low 80's with oxygen requirement of 2l/min for sat at 92% CXR concerning for pulmonary congestion VS pneumonia Recommendation for PA and lat CXR Wean O2 as tolerated for sat > 92% mixed etiology of congestive heart failure and respiratory infection elevated BNP (3) Hypoxemia: Status: Acute Assessment and plan: As above (4) Influenza A: Status: Acute Assessment and plan: Positive as per upper resp viral panel On Tamiflu- fever subsiding today - was up to 40.4 on 04/14 As per IDSA guidelines no antibiotic at this time in the setting know respiratory viral infection Low treshold to restart ceftriaxone and azithromycin if surinfection is suspected procal < 0.1 (5) Pneumonia: Status: Acute Assessment and plan: Initally on antibiotics but discontinued as per point 4. Most likely from a viral origin with symptoms progressing over the past weeks d/t fluid overload Will hold off antibiotics and continue to treat with Tamiflu as per IDSA guidelines procal 0.10 Blood cultures negative (6) Atrial fibrillation: Status: Chronic Assessment and plan: Controlled (MVR today) on beta maulik home regimen and on chronic anticoagulation- will continue (7) Diabetes mellitus: Status: Chronic Assessment and plan: Ongoing metformin Discussed GLP-1 inhibitors with patient and f/u s per PCP . A1C 5.9 (8) Hypokalemia: Assessment and plan: Resolved hold her hydrochlorothiazide and losartan while on IV lasix BMP in AM (9) CHF (congestive heart failure): Assessment and plan: BNP > 3000 Echocardiogram Conclusion Mild concentric left ventricular hypertrophy. Ejection fraction is 55%. Wall motion is normal Normal right ventricular size and function Both atria are moderately enlarged There are no structural valvular abnormalities Trace aortic regurgitation Moderate mitral regurgitation Mild tricuspid regurgitation. Estimated right ventricular systolic pressure is 55 mmHg Ascending aorta measures 3.87 cm IVC non-plethoric One time dose 40mg IVP resulting in improved air-flow to lungs Continue Lasix 20 mg IV BID (10) HTN (hypertension): Assessment and plan: restart amlodipine at 5mg PO daily and adjust & ongoing metoprolol hold losartan and hydrochlorothiazide Discussed with Dr. Keyes Subjective Subjective Patient reports: no new complaints, feels better, tolerating liquids well, tolerating a regular diet, voiding w/o difficulty, flatus, shortness of breath and fever; denies diarrhea or vomiting Exam Narrative Exam Narrative: No acute distress at rest, but increased WOB on ambulation on RA -recovery time 5-10 minutes sat 84-93% Neurologic nonfocal, A&O X4 Cardiovascular S1, S2 regular no murmur PPPX4 Clear lungs Abdomen large, nondistended, soft and non-tender NO CVA tenderness Psych congruent mood and affect Objective Last Vital Signs Temp 37.9 C H 04/14/25 07:55 Pulse 79 04/14/25 07:55 Resp 18 04/14/25 07:55 BP 120/70 04/14/25 07:55 Pulse Ox 96 04/14/25 07:55 Laboratory Results - last 24 hr 04/14/25 04/14/25 04/14/25 02:40 03:35 04:02 WBC 6.76 RBC 3.78 L Hgb 10.7 L Hct 33.3 L MCV 88 MCH 28.3 MCHC 32.1 RDW 16.0 H Plt Count 326 MPV 9.7 Immature Gran % 0.4 Neutrophils % 77.3 Lymphocytes % 10.1 Monocytes % 11.2 Eosinophils % 0.7 Basophils % 0.3 Nucleated RBC % 0.0 Absolute Neutrophils 5.22 Absolute Lymphocytes 0.68 L Absolute Monocytes 0.76 Absolute Eosinophils 0.05 Absolute Basophils 0.02 VBG pH 7.45 H VBG pCO2 46 VBG pO2 27 VBG HCO3 32 H VBG Total CO2 29 VBG O2 Saturation 48 VBG Base Excess 8 H VBG Lactate 1.3 Sodium 141 Potassium 2.9 L Chloride 101 Carbon Dioxide 29.7 Anion Gap 10.3 BUN 36 H Creatinine 1.19 H Est GFR (CKD-EPI 2020) 43.78 Glucose 135 H Calcium 9.5 Total Bilirubin 0.50 AST 20 ALT 12 Alkaline Phosphatase 93 Troponin I 13 14 NT-Pro-B Natriuret Pep 4465 H Total Protein 7.7 Albumin 4.2 Procalcitonin < 0.10 COVID-19 Source Nasopharynx SARS-CoV-2 (PCR) Negative Influenza Type A (PCR) Positive A Influenza Type B (PCR) Negative RSV (PCR) Negative 04/14/25 04/14/25 05:55 08:06 WBC 5.42 RBC 3.69 L Hgb 10.4 L Hct 32.7 L MCV 89 MCH 28.2 MCHC 31.8 L RDW 16.1 H Plt Count 297 MPV 9.3 Immature Gran % 0.4 Neutrophils % 71.7 Lymphocytes % 16.8 Monocytes % 10.5 Eosinophils % 0.2 Basophils % 0.4 Nucleated RBC % 0.0 Absolute Neutrophils 3.89 Absolute Lymphocytes 0.91 L Absolute Monocytes 0.57 Absolute Eosinophils 0.01 Absolute Basophils 0.02 VBG pH VBG pCO2 VBG pO2 VBG HCO3 VBG Total CO2 VBG O2 Saturation VBG Base Excess VBG Lactate Sodium 140 Potassium 3.5 Chloride 101 Carbon Dioxide 31.2 H Anion Gap 7.8 BUN 34 H Creatinine 1.17 H Est GFR (CKD-EPI 2020) 44.64 Glucose 112 H Calcium 9.3 Total Bilirubin 0.40 AST 22 ALT 11 Alkaline Phosphatase 88 Troponin I 14 NT-Pro-B Natriuret Pep Total Protein 7.5 Albumin 4.1 Procalcitonin COVID-19 Source SARS-CoV-2 (PCR) Influenza Type A (PCR) Influenza Type B (PCR) RSV (PCR) VTE Prohylaxis Risk Level: Moderate/High Risk Contraindications: None Prophylaxis: Patient anticoagulated and Pharmacologic Time Spent with Patient Time Spent with Patient: >50 minutes Time was spent: preparing to see the patient(eg.review tests), obtaining and/or reviewing separately otained hiistory, ordering medications,tests, procedures, referring, communicating with other health director of health care marketing, indepentently interpreting results, counseling the patient, care coordination and other
[2025-04-14 10:15] LABS: Magnesium 1.7 mg/dL (1.6-2.6)
[2025-04-14] MEDS: Potassium Chloride 10 MEQ CAPCR 40 MEQ PO ×2 (10:46→20:17)
[2025-04-14 12:40] LABS: Glucose Negative (Negative)
[2025-04-14 12:53] LABS: C & S Indicated? No; RBC Negative HPF (0-2); WBC 0-2 HPF (0-5)
--- NOTE | 2025-04-14 15:00 | PHA.REVIEW2 ---
Pharmacy Admission Review Admission Clinical Review Admission Pharmacy Review: Influenza A (Acute) Pneumonia (Acute) Hypoxemia (Acute) zolpidem tartrate (From Ambien) Adverse Reaction (Severe, Verified 03/03/25 11:03) Psychosis Resuscitation Status Full Code Height 5 ft 4 in Weight 113 kg Pharmacy Admission Review Renal Dosing Renal Dosing: BUN 34 mg/dL (9-23) H 04/14/25 08:06 Creatinine 1.17 mg/dL (0.55-1.02) H 04/14/25 08:06 Medications needing adjustments: Reviewed (CRCL=47; OSELTAMIVIR SHOULD BE DOSED TO 30MG BID (AFTER 75MG LOADING DOSE) PER DOSING RECOMMENDATIONS) Anticoagulation Anticoagulation: Hgb 10.4 g/dL (11.2-15.7) L 04/14/25 08:06 Hct 32.7 % (36.0-46.0) L 04/14/25 08:06 Plt Count 297 10^3/uL (130-400) 04/14/25 08:06 Creatinine 1.17 mg/dL (0.55-1.02) H 04/14/25 08:06 DVT Prophylaxis: Reviewed Medications: Apixaban Opiate Usage Evaluate Pain Scale/Pains Meds: N/A Relevant Labs Relevant Labs: Sodium 140 mmol/L (136-145) 04/14/25 08:06 Potassium 3.5 mmol/L (3.5-5.1) 04/14/25 08:06 Chloride 101 mmol/L (98-107) 04/14/25 08:06 Magnesium 1.7 mg/dL (1.6-2.6) 04/14/25 08:06 Electrolytes, C-Reactive P, ESR: Reviewed (POTASSIUM REPLETED) DM Control DM Control: Reviewed Insulin Dosing, Diabetic Medication: AM [id number]; PT ON HOME METFORMIN Cardiac Review Cardiac Review: Troponin I 14 ng/L (<35) 04/14/25 05:55 NT-Pro-B Natriuret Pep 4465 pg/mL (<300) H 04/14/25 02:40 BP, HR, EF%: Reviewed (OG=314/70; HR=79; ON HOME METOPROLOL) QTc Review QTc: Reviewed List meds needing interventions: CPC=827; MEDS REVIEWED Home Meds Relevent Home Meds Not ordered & why?: provider holding hydrochlorothiazide while treating hypokalemia of 2.9 Current Meds Current Medication Order Review: Reviewed Pharmacy Antibiotic Review Relevant Labs: Relevant Labs 04/14/25 02:40 Procalcitonin < 0.10 Pharmacy Antibiotic Activity: Reviewed, no change (currently on ceftriaxone and azithromycin for potential CAP. )
[2025-04-14] MEDS: Furosemide 20 MG/2 ML VIAL IVP (16:46)
[2025-04-14] MEDS: Simvastatin 20 MG TAB PO (20:18)
[2025-04-14] MEDS: Docusate Sodium 100 MG CAP PO (20:18)
[2025-04-14] MEDS: Acetaminophen 325 MG TAB 650 MG PO (20:26)
[2025-04-14] MEDS: Oseltamivir 75 MG CAP 30 MG PO (20:29)
--- NOTE | 2025-04-14 20:33 | PT.INNT ---
PT Notes Visit Reasons: Hypoxia PT Consult received. Chart reviewed Pt is on Droplet precautions for FLU A . Pt approached for PT assessment at 11 am. Pt reports she has not had any sleep as she was in the ER at 3 am and did not get up to this room until 730am. She reports she lives in home with ramp to enter. She stated she has a 4WW and a wheelchair at home. She requested PT to come back in the PM . 11 mins spent with her and pt was given chap stick at her request at end of session. MARLON Mejia notified of unsuccessful attempt to complete consult.Pt notified by ERIC Robison pt now has a fever and requested to allow pt to rest. PT will reapproach on 04/15/2025 for assessment.
[2025-04-14 21:59] LABS: MRSA PCR Positive (Negative)
[2025-04-15] VITALS (14 sets, daily range): BP systolic 94–132; BP diastolic 52–90; PULSE 72–90; RESP 16–22; TEMP 36.7–37.8; O2SAT 92–97
[2025-04-15] MEDS: Acetaminophen 325 MG TAB 650 MG PO (05:03)
[2025-04-15] MEDS: Levothyroxine 175 MCG TAB PO (05:13)
[2025-04-15] MEDS: Albuterol/Ipratropium 3 ML UPD VIAL UPD ×4 (05:56→23:48)
[2025-04-15 06:43] LABS: Abs Immature Grans 0.02 10^3/uL (0.0-0.06); HCT 32.5 % (36.0-46.0); HGB 10.2 g/dL (11.2-15.7); Immature Grans % 0.4 %; MCH 28.3 pg (27.0-33.0); MCHC 31.4 % (32.0-36.0); MCV 90 fL (80-95); MPV 10.0 fL (8.0-11.0); Platelet Count 277 10^3/uL (130-400); RBC 3.61 10^6/uL (3.93-5.22); RDW 16.4 % (11.7-14.6); RDW-SD 53.9 fL; WBC 5.60 10^3/uL (4.4-10.8)
[2025-04-15 07:15] LABS: Anion Gap 10.4 mmol/L (3-11); BUN 27 mg/dL (9-23); CO2 28.6 mmol/L (20.0-31.0); Calcium 9.1 mg/dL (8.3-10.6); Chloride 103 mmol/L (98-107); Glucose 123 mg/dL (74-106); Magnesium 1.7 mg/dL (1.6-2.6); Potassium 3.9 mmol/L (3.5-5.1); Sodium 142 mmol/L (136-145)
[2025-04-15 07:46] LABS: Creatine Kinase 308 U/L (34-145)
--- NOTE | 2025-04-15 09:14 | PT.INIE ---
PT Notes Visit Reasons: Hypoxia Physical Therapy Inpatient Initial Evaluation Date: 04/15/2025 Referring Doctor: Little Mejia NP PT Orders: PT CONSULT:Fall safety assessment, safety consult for discharge Precautions: Droplet precautions, maintain O2 sats greater than 92% Patient Profile/Admitting Diagnosis: Pt is a 79 yo female who presented to the ED on 04/14/25 with cough, SOB and progressive weakness x 3 weeks. Pt sustained a fall between her bed and her dresser and had to call family to assist her up. Family then called EMS to transport to the hospital. In ED pt noted to have productive cough , temp . Pt labs (+) for FLU A. CxR mild cardiomegaly Pt requires supplemental oxygen to keep sats >92%, Pt dx Sepsis, CHF treated with IV ABX and diuretics. PMHX: Hypokalemia (Acute) CHF (congestive heart failure) (Chronic) Pneumonia (Acute) Hypoxemia (Acute) History of anemia (Acute) Ambulatory dysfunction (Acute) weaknessHeart failure with preserved ejection fraction (Acute) Atrial fibrillation (Chronic) Living accommodation issues (Chronic) Increased body mass index (BMI) (Chronic) Headache (Chronic) History of hysterectomy (Acute 09/21/15) History of partial thyroidectomy (Chronic) Status post LEEP (loop electrosurgical excision procedure) of cervix (Acute) Essential hypertension (Chronic 03/12/13) Peptic reflux disease (Chronic) Palpitations (Chronic) Low back pain (Chronic) Localized osteoarthrosis (Chronic 08/04/13) Hypothyroidism (Chronic 07/20/12) grave's s/p ablation and partial lobectomy Hyperlipidemia (Chronic 10/28/12) Diabetes mellitus (Chronic 12/23/12) Medical History Hypotension due to hypovolemia MARKEL (acute kidney injury) Hypokalemia Hypotension Hypomagnesemia CHF (congestive heart failure) Wound healing, delayed (04/14/17) HTN (hypertension) Depressive disorder History of total right hip replacement Surgical History History of bilateral ligation of fallopian tubes Ligation of fallopian tube Total replacement of hip (12/18/15) Right LeftLobectomy U/L THYROIDHysterectomy Colonoscopy - MAC (12/18/16) Cervical Conization/LEEP Social History/Home Situation: Pt is living with her daughter, Paulette, and her family. her daughter, Lisa, is Gisel's paid care program director. She has a ramp to enter. Pt independent ambulation with 4WW. Pt notes she uses wheelchair in community. She has assistance for ADLs. Pt does not have oxygen at home. Equipment Owned/DME: Wheelchair, four-wheel walker Subjective:Pt reports she is feeling beter than she was but still feels weak. Objective: [] General Observation: Pt sidelying in bed with HOB flat attempting to eat her breakfast. She is currently on 4L/min oxygen via NC however the tubing was kinked. ( sats 97%) Mental Status: A + Ox 4, cooperative agreeable to participate and able to follow instructions Pain: denied Vitals: 97% on 4L/min via NC decreased to 2L/min via NC per ERIC Dumas 94% ROM: [] BUE : WFL BLE: WFL Strength: [] BUE: grossly 4/5 Right Lower Extremity: grossly 3/5 Left Lower Extremity: grossly 3/5 Sensation: intact Bed Mobility/Transfers: [] Supine to sit mod A with increased time Sit to stand min A of 1 Stand to sit CGA with cues for hand placement Bed to chair Min A of 1 with FWW Gait: amb with FWW 25 feet x 1 within room with CGA cues for pacing and dependent for oxygen tubing management. Pt with increased WB BUE forward flexed trunk adequate foot clearance Balance: [] Static Sitting: normal Dynamic Sitting: good Static Standing: good with UE support Dynamic Standing:Fair with UE support Special Tests: [] Mobility Limitations Standardized Measure [] [facility] AM-PAC 6 clicks Basic Mobility Inpatient Short Form: [] Raw Score: 17 CMS Score: 50.57% deficit Informed Consent/Education: Patient instructed in purpose of PT consult. Assessment: Pt is a 79 yo female presenting with productive cough and supplemental oxygen need d/t new diagnosis of Flu A. Pt demonstrates SHEPARD, poor pacing strategies and poor breath control techniques. She requires assistance to maintain oxygen tubing management. Patient presents with clinical signs and symptoms consistent with current/admitting diagnoses that have resulted to mobility limitations, gait instability, generalized weakness, and impairment of motor control as demonstrated by the following impairment level findings: 1. Decreased strength to BUE/BLE major muscle groups 2. Impaired standing balance 3. impaired functional activity tolerance 4. impaired breath control/pacing/ dyspnea Impairments are contributing to the following functional limitations: 1. Inability to safely ambulate without assistive device 2. Increase completion time for mobility ADL performance 3. Increased fall risk 4. decline in bed mobility skills 5. decline in transfer skills Patient is assessed as a low complexity based on the following: History: 79-year-old female with impairment level findings, functional limitations, and past medical history as indicated above Examination: Demonstrable impairment in strength, balance, and mobility level with underlying impairments and functional limitations as documented above Presentation: stable/ evolving Decision Making: low Goals: 1. independent bed mobility 2. Independent transfers with FWW 3. Independent ambulation with FWW greater than 50 feet to simulate ambulation within home 4. Demonstrate breath control and pacing techniques to maintain saturations >92% Plan of Care/Treatment Plan: 1-2x/day, 7 days/week x 1 week. Plan of care has been reviewed with the [employer] providing the service under Physical Therapy direction. Initiate Physical Therapy intervention for strengthening, bed mobility, transfers, gait, stairs, balance training, use of assistive device. DISCHARGE RECOMMENDATIONS: Home with HHPT when medically appropriate TREATMENT CODE/TIME: 50483, [id number] Thank you for the opportunity to participate in the care of this patient. Jane Campos, PT [facility]
[2025-04-15] MEDS: Apixaban 5 MG TAB PO ×2 (09:20→20:37)
[2025-04-15] MEDS: Docusate Sodium 100 MG CAP PO ×2 (09:20→20:37)
[2025-04-15] MEDS: Calcium 600mg/Vit D 200U TAB 1 TAB PO (09:21)
[2025-04-15] MEDS: Metoprolol CR 100 MG TABCR 200 MG PO (09:21)
[2025-04-15] MEDS: Multivitamin w/Minerals TAB 1 TAB PO (09:22)
[2025-04-15] MEDS: Aspirin 81 MG CHEW PO (09:22)
[2025-04-15] MEDS: metFORMIN 500 MG TAB 1000 MG PO ×2 (09:23→16:54)
[2025-04-15] MEDS: Potassium Chloride 10 MEQ CAPCR 40 MEQ PO ×2 (09:23→20:36)
[2025-04-15] MEDS: Normal Saline Flush 10 ML SYR IVP ×3 (09:25→20:43)
[2025-04-15] MEDS: Magnesium Chloride 64 MG TABCR PO ×2 (09:53→20:36)
[2025-04-15] MEDS: Oseltamivir 30 MG CAP PO ×2 (10:05→20:36)
--- NOTE | 2025-04-15 15:36 | PDOC.CMPRO ---
Date of service: 04/15/25 Time of Service: 15:39 Care Management Progress Note Progress Note Text Progress Note Text: Gisel was in her room and awake during this time. Per report, she continues to require 2L O2 NC. Per report, she had a fever this morning. She was able to work with PT who recommendeds new home health PT to assess for the [facility]. A second chest X ray was preformed. CM will continue to follow. Discharge Potential Discharge Needs: PCP F/U Appt Anticipated Barriers to Discharge: None Identified Patient/Family Education Needs: Review discharge instructions, discuss Ask Me Three Transportation: Private vehicle Plan: Anticipate that Gisel will discharge home with new services of [facility] RN, OT, and PT to assess for the [facility]. She currently has telehealth. It is recommended she follow up with her communtiy providers and continue per her discharge plan of care. CM will continue to follow through discharge and update the plan as needed. Social Determinants of Health Screening Will the Patient Participate in the Screening?: Declined to provide
[2025-04-15] MEDS: Furosemide 20 MG/2 ML VIAL 40 MG IVP (16:53)
[2025-04-15] MEDS: guaiFENesin 600 MG TABCR PO (20:36)
[2025-04-15] MEDS: Simvastatin 20 MG TAB PO (20:42)
[2025-04-16] VITALS (14 sets, daily range): BP systolic 101–104; BP diastolic 55–67; PULSE 74–79; RESP 16–19; TEMP 36.6–37.4; O2SAT 83–95
[2025-04-16] MEDS: Acetaminophen 325 MG TAB 650 MG PO ×2 (00:14→16:38)
[2025-04-16] MEDS: Albuterol/Ipratropium 3 ML UPD VIAL UPD (05:47)
[2025-04-16] MEDS: Levothyroxine 175 MCG TAB PO (06:07)
[2025-04-16] MEDS: amLODIPine 10 MG TAB 5 MG PO (08:34)
[2025-04-16] MEDS: Magnesium Chloride 64 MG TABCR PO ×2 (08:34→19:39)
[2025-04-16] MEDS: Aspirin 81 MG CHEW PO (08:35)
[2025-04-16] MEDS: Metoprolol CR 100 MG TABCR 200 MG PO (08:35)
[2025-04-16] MEDS: metFORMIN 500 MG TAB 1000 MG PO ×2 (08:35→16:38)
[2025-04-16] MEDS: Calcium 600mg/Vit D 200U TAB 1 TAB PO (08:35)
[2025-04-16] MEDS: Oseltamivir 30 MG CAP PO ×2 (08:35→19:39)
[2025-04-16] MEDS: Apixaban 5 MG TAB PO ×2 (08:35→19:39)
[2025-04-16] MEDS: Potassium Chloride 10 MEQ CAPCR 40 MEQ PO ×2 (08:35→19:39)
[2025-04-16] MEDS: Docusate Sodium 100 MG CAP PO ×2 (08:35→19:39)
[2025-04-16] MEDS: Furosemide 20 MG/2 ML VIAL IVP ×2 (08:35→16:37)
[2025-04-16] MEDS: Multivitamin w/Minerals TAB 1 TAB PO (08:35)
[2025-04-16] MEDS: guaiFENesin 600 MG TABCR PO ×2 (08:35→19:39)
[2025-04-16] MEDS: Normal Saline Flush 10 ML SYR IVP ×2 (08:37→19:41)
--- NOTE | 2025-04-16 10:30 | DI.RAD_ITS ---
Exam(s) XR PORTABLE CHEST AP EXAM: XR PORTABLE CHEST AP CLINICAL HISTORY: PNA. TECHNIQUE: 2D digital imaging was performed. COMPARISON: CR XR CHEST 2V PA LATERAL from 10/26/2024 CR,XR XR PORTABLE CHEST AP from 04/14/2025 FINDINGS: Single AP portable view. Heart size is upper normal. The mediastinum is unchanged. Retrocardiac density is probably tortuous descending thoracic aorta or possible hiatal hernia. There are no confluent pulmonary infiltrates nor obvious pleural effusions. IMPRESSION: No acute pulmonary findings on this single AP portable view of the chest. Preliminary V rad report was reviewed DATA REPOSITORY: RADIATION DOSE DELIVERED:
--- NOTE | 2025-04-16 11:04 | DI.VRAD_ITS ---
PROCEDURE INFORMATION: Exam: XR Chest Exam date and time: 04/16/2025 10:45 AM Age: 79 years old Clinical indication: Other: Influenza, pneumonia TECHNIQUE: Imaging protocol: Radiologic exam of the chest. Views: 1 view. COMPARISON: CR XR PORTABLE CHEST AP 04/14/2025 3:24 AM FINDINGS: Lungs: There is right basilar atelectasis. No consolidation. Pleural spaces: Unremarkable. No pleural effusion. No pneumothorax. Heart/Mediastinum: Unremarkable. No cardiomegaly. Bones/joints: Unremarkable. IMPRESSION: No active pulmonary disease. Dictated and Authenticated by: Misael Antoine MD. Orderin Emery Francisco MD
[2025-04-16] MEDS: Simvastatin 20 MG TAB PO (19:39)
[2025-04-17 04:58] VITALS: BP 112/79; PULSE 86; RESP 17; TEMP 36.8; O2SAT 92
[2025-04-17] MEDS: Levothyroxine 175 MCG TAB PO (05:28)
[2025-04-17 07:02] VITALS: BP 117/71; PULSE 84; RESP 18; TEMP 36.8; O2SAT 92
[2025-04-17 07:40] VITALS: O2SAT 88
[2025-04-17 07:55] VITALS: O2SAT 93
[2025-04-17] MEDS: Metoprolol CR 100 MG TABCR 200 MG PO (08:28)
[2025-04-17] MEDS: Magnesium Chloride 64 MG TABCR PO (08:28)
[2025-04-17] MEDS: Calcium 600mg/Vit D 200U TAB 1 TAB PO (08:28)
[2025-04-17] MEDS: Normal Saline Flush 10 ML SYR IVP (08:28)
[2025-04-17] MEDS: Potassium Chloride 10 MEQ CAPCR 40 MEQ PO (08:28)
[2025-04-17] MEDS: Furosemide 20 MG/2 ML VIAL IVP (08:28)
[2025-04-17] MEDS: Docusate Sodium 100 MG CAP PO (08:29)
[2025-04-17] MEDS: Oseltamivir 30 MG CAP PO (08:29)
[2025-04-17] MEDS: Multivitamin w/Minerals TAB 1 TAB PO (08:29)
[2025-04-17] MEDS: guaiFENesin 600 MG TABCR PO (08:29)
[2025-04-17] MEDS: Aspirin 81 MG CHEW PO (08:29)
[2025-04-17] MEDS: metFORMIN 500 MG TAB 1000 MG PO (08:29)
[2025-04-17] MEDS: Apixaban 5 MG TAB PO (08:29)
[2025-04-17] MEDS: amLODIPine 10 MG TAB 5 MG PO (08:29)
--- NOTE | 2025-04-17 10:28 | PTTR_ITS ---
PT Notes Visit Reasons: Hypoxia Inpatient Physical Therapy Treatment Note [facility] Date: 04/17/25 PRECAUTIONS: hypoxia SUBJECTIVE: Pt states she feels like she is getting back close to her baseline. She was hoping to go home today OBJECTIVE: ? PAIN: no pain complaints throughout session VITALS: ? Pre-Treatment: spO2 91% ? Post-Treatment: following ambulation spO2 dropped to 79% on RA, ret urned to 90% after 3 minutes and cues for breathing? Therapeutic Activities ([id number]): Direct one-on-one instruction in dynamic activities to improve functional performance. ? BED MOBILITY/TRANSFERS? Rolling L/R: independent Supine-sit: independent? Sit-supine: independent? Sit-stand: SBA ? Stand-sit: SBA? Bed-Chair: SBA? Chair-bed: SBA Provided skilled cues and instruction on performance and technique throughout. ? GAIT? Assistive Device: RW? Weight bearing: WBAT Assist: SBA ? Distance:? 30 ft ? Deviation: increased UE support, decreased gait speed ? ASSESSMENT:? Pt's spO2 dropped to 79% after 30 ft of ambulation. She did recover to >90% after 3 minutes but it is recommended that she receive supplemental O2 for home and uses it with activity. As for her overall function, she is doing well with her RW and can return home when medically cleared. She has already agreed to home health services. PLAN: Use supplemental O2 for ambulation, d/c with home O2 TREATMENT CODE/TIME: Ther Act (78329) x1 - 20 min DISCHARGE RECOMMENDATION: Home with home health services and supplemental O2 for ambulation
[2025-04-17 11:20] VITALS: BP 100/66; PULSE 80; RESP 16; TEMP 36.4; O2SAT 92
--- NOTE | 2025-04-17 14:06 | PDOC.CMDIS ---
Date of service: 04/17/25 Time of Service: 14:06 LACE Index Scoring Tool Questions: Length of Stay (in days): 3 Was the patient admitted via the E.D.?: Yes Comorbidities: Congestive Heart Failure E.D. Visits: 2 Answers: Total Score: 10 Risk of Readmission: High Risk Care Management Discharge Plan Reason for Hospitalization: Hypoxia Discharge Plan: Gisel will discharge home with new services of [facility] RN, OT, and PT to assess for the [facility] program. She currently has telehealth. It is recommended she follow up with her community providers and continue per her discharge plan of care. She will transport home via private vehicle. Patient/Family Education Needs: Review discharge instructions, activity, and limitations. Discuss Ask Me Three Services Needed at Discharge: Home Health Care Services SDOH Health Related Social Needs: Health related social needs transpo insecurity Health related social needs details provider aware
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
--- NOTE | 2025-04-17 14:27 | PDOC.HHF2F_ITS ---
Date of service: 04/17/25 Time of Service: 14:28 Home Health Referral Home Health Orders Clinical synopsis of why skilled professionals are needed: hypoxic resp failure, multifactorial with influenza and heart failure Medical diagnosis necessitation home health referral: influenza, HFpEF Registered Nurse: Check all that apply Instruct on new or changed medication(s)/assess compliance: Ordered Assess for exacerbation of medical condition, instruct patient/caregivers on signs and symptoms to report for early detection: Ordered Physical Therapist: Check all that apply Increase strength & endurance for safe mobility at home: Ordered To design/establish home maintenance program: Ordered Home safety evaluation and teaching/gait training including stair management (if applicable): Ordered Occupational Therapist: Evaluate and treat for patient unable to perform ADL/IADL/self-care: Ordered Cover Maker: Assist with community resources: Ordered Assist with watermelon harvesting supervisor care planning: Ordered Home Bound Status Requires the aid of supportive device (check all that apply): Walker Describe why leaving home would require a considerable and taxing effort: Requires frequent rest periods Encounter Date and Reason: I certify that a FTF encounter for this patient was performed on April 17, 2025 and that such encounter was related to the primary reason the patient requires home health services. The encounter was conducted in the following manner: * By me as the certifying physician, COMPUTER LAB ASSISTANT, PA or * By an inpatient physician, COMPUTER LAB ASSISTANT or PA during an inpatient stay who communicated findings to me, Certification And Authentication I certify that I composed the above information based on my clinical judgment relating to this patient's medical condition and, if applicable, clinical findings communicated to me by the NPP or inpatient physician who performed the FTF encounter. Name of Provider that will be monitoring home health services: Mikel Polanco
--- NOTE | 2025-04-17 14:28 | W.PM.PROGNOT ---
Date of Service Date of service: 04/16/25 Time of Service: 13:00 Assessment and Plan Assessment and plan (1) Acute hypoxic respiratory failure: Status: Acute Assessment and plan: Secondary to influenza and fluid overload Wean oxygen as able IV diuresis, Tamiflu Pulmonary toileting incentive spirometer (2) Influenza A: Status: Acute Assessment and plan: Complete 5-day course of Tamiflu-renally dosed procal < 0.1 No antibiotics indicated (3) Atrial fibrillation: Status: Chronic Assessment and plan: Rate is controlled continue metoprolol succinate, is fully anticoagulated on apixaban (4) Diabetes mellitus: Status: Chronic Assessment and plan: Diabetic diet A1C 5.9 (5) Hypokalemia: Assessment and plan: Resolved hold her hydrochlorothiazide and losartan while on IV lasix BMP in AM (6) CHF (congestive heart failure): Assessment and plan: BNP > 3000 Echocardiogram Conclusion Mild concentric left ventricular hypertrophy. Ejection fraction is 55%. Wall motion is normal Normal right ventricular size and function Both atria are moderately enlarged There are no structural valvular abnormalities Trace aortic regurgitation Moderate mitral regurgitation Mild tricuspid regurgitation. Estimated right ventricular systolic pressure is 55 mmHg Ascending aorta measures 3.87 cm IVC non-plethoric One time dose 40mg IVP resulting in improved air-flow to lungs Continue Lasix 20 mg IV BID Monitor intake and output closely Daily weights (7) HTN (hypertension): Assessment and plan: restart amlodipine at 5mg PO daily and adjust & ongoing metoprolol hold losartan and hydrochlorothiazide, will resume at discharge Discussed with Dr. Keyes Subjective Subjective Patient reports: no new complaints, feels better, tolerating liquids well, tolerating a regular diet, shortness of breath and afebrile Interval history since last seen: Still requiring oxygen with ambulation desatting into the mid to low 80s, satting in the low 90s on room air at rest Exam Narrative Exam Narrative: Chronically ill-appearing female stated age no acute distress head is atraumatic eyes nonicteric noninjected oral mucosa is moist neck is supple full range of motion no JVD cardiovascular regular rate and rhythm respirations even and unlabored she does have rales in her bases bilaterally no wheezing abdomen is round soft nontender neurologic she is awake alert oriented psychiatric blunted mood and affect Objective Last Vital Signs Temp 36.4 C L 04/17/25 11:20 Pulse 80 04/17/25 11:20 Resp 16 04/17/25 11:20 BP 100/66 04/17/25 11:20 Pulse Ox 92 04/17/25 11:20 VTE Prohylaxis Risk Level: Moderate/High Risk Contraindications: None Prophylaxis: Patient anticoagulated and Pharmacologic Time Spent with Patient Time Spent with Patient: 35-49 minutes Time was spent: preparing to see the patient(eg.review tests), obtaining and/or reviewing separately otained hiistory, ordering medications,tests, procedures and indepentently interpreting results
== END 2025-04-17 14:39 | disposition home health service (06) | DRG 871 ==
LOC: ER 05:11 → MS 06:56
PROVIDERS: Nurse Practitioner Acute Care; Admitting Provider Hospitalist; Emergency Provider Student in an Organized Health Care Education/Training Program; PCP Nurse Practitioner Family; Responsible Provider Nurse Practitioner Acute Care; Visit Provider Hospitalist
DX: A41.9 Sepsis, unspecified organism (principal); J96.01 Acute respiratory failure with hypoxia; I50.33 Acute on chronic diastolic (congestive) heart failure; J10.01 Influenza due to other identified influenza virus with the same other identified influenza virus pneumonia; Z68.41 Body mass index [BMI] 40.0-44.9, adult; I11.0 Hypertensive heart disease with heart failure; E78.00 Pure hypercholesterolemia, unspecified; I48.91 Unspecified atrial fibrillation; R53.1 Weakness; E89.0 Postprocedural hypothyroidism; M54.50 Low back pain, unspecified; E78.5 Hyperlipidemia, unspecified; E11.9 Type 2 diabetes mellitus without complications; Z96.643 Presence of artificial hip joint, bilateral; E66.9 Obesity, unspecified; I08.1 Rheumatic disorders of both mitral and tricuspid valves; Z79.01 Long term (current) use of anticoagulants; Z59.82 Transportation insecurity; Z79.84 Long term (current) use of oral hypoglycemic drugs; Z99.81 Dependence on supplemental oxygen
CPT/HCPCS: 00123; 36415; 80048; 80053; 82550; 82805; 84145; 87040; 87637; 87641; 93005; 94761; 96365; 96367; 96375; 97161; 97530; 99291; 71045; 81003; 81015; 83605; 83735; 83880; 84484; 85025; 87070; 87205; 93010; 94640; 94760; 99222; 99232; 99238; J0131; J0456; J0696; J1938; J3480; J7620